=== PATIENT | female | born 1935 | race Caucasian/White ===

== ENCOUNTER 2016-05-20 18:27 | Emergency (ER) | payer MEDICARE ==
[~2016-05-20] VITALS: Ht 149.9 cm; Wt 108.4 kg
[~2016-05-20 18:27] MED LIST: ALEN70TA48 PO; ASPI-483 PO; CHOL200020 PO; HYDR-2164 PO; INSU100V27 SQ; INSU100V28 SQ; MULT-806 PO; OLME20TA15 PO; OMEG-34 PO; OMEP-29 PO; SIMV10TA76 PO
[2016-05-20 18:32] VITALS: Ht 149.9 cm; Wt 108.4 kg
[2016-05-20] MEDS ORDERED: INSU100V13 SQ (18:52)
[2016-05-20] MEDS ORDERED: ACET-2890 PO (18:52)
[2016-05-20 19:07] LABS: BASOPHILS # (AUTO) 0.1 T/MM3 (0-0.2); BASOPHILS % (AUTO) 0.6 % (0-2); EOSINOPHILS # (AUTO) 0.2 T/MM3 (0-0.5); HCT - HEMATOCRIT 42.4 % (36-46); HGB - HEMOGLOBIN 13.8 GM/DL (12-16); IMMATURE GRANULOCYTE # (AUTO) 0.01 T/MM3 (0.00-0.03); IMMATURE GRANULOCYTE % (AUTO) 0.1 % (0.0-0.5); LYMPHOCYTES # (AUTO) 2.7 T/MM3 (1-4.8); LYMPHOCYTES % (AUTO) 33.3 % (23-45); MEAN CORPUSCULAR HGB 30.1 UUG (26-34); MEAN CORPUSCULAR HGB CONC(MCHC 32.5 GM/DL (31-37); MEAN CORPUSCULAR VOLUME 92.4 UM3 (80-100); MEAN PLATELET VOLUME 10.9 UM3 (9.4-12.4); MONOCYTES # (AUTO) 0.5 T/MM3 (0-0.8); MONOCYTES % (AUTO) 5.7 % (0-9.0); NEUTROPHILS #(AUTO)-ABSOLUTE 4.6 T/MM3 (1.8-7.7); NEUTROPHILS % (AUTO) 57.3 % (33-66); RED BLOOD COUNT 4.59 M/MM3 (4.00-5.20)
[2016-05-20 19:11] LABS: ANION GAP 16 MEQ/L (5-15); BUN/CREATININE RATIO 18 RATIO (6-26); CALCIUM 9.4 MG/DL (8.4-10.2); CHLORIDE 111 MEQ/L (98-107); CO2 - CARBON DIOXIDE 23 MEQ/L (22-30); CREATININE 1.1 MG/DL (0.7-1.2); GLOMERULAR FILTRATION RATE 48; GLUCOSE 100 MG/DL (65-110); POTASSIUM 3.8 MEQ/L (3.6-5); SODIUM 150 MEQ/L (134-144)
--- NOTE | 2016-05-20 19:20 | NUR ---
STATUS PT RESTING IN BED. DENIES NEEDS AT THIS TIME. STATES SHE WILL NOTIFY SOMEONE WHEN SHE NEEDS ASSISTANCE TO BEDSIDE COMMODES. STATES RECENT HX OF DIARRHEA AND HAS A SENSE OF URGENCY WHEN SHE FEELS THE NEED TO HAVE A BM. CALL LIGHT WITHIN REACH. BEDSIDE COMMODE IN ROOM.
--- NOTE | 2016-05-20 20:07 | ERPDOC ---
Departure Disposition Decision Date: May 20, 2016 Disposition Decision Time: 20:05 Disposition: 01 DISCHARGED HOME, SELF-CARE Impression Impression Impression: Primary Impression: GI bleed GI bleed type/associated pathology: unspecified gastrointestinal hemorrhage type Qualified Codes: K92.2 - Gastrointestinal hemorrhage, unspecified Severity: Moderate Condition: Stable Seen By: Mid-level only Referrals: VERONICA ROMEO MD (PCP) Patient Instructions: Gastrointestinal Bleeding (ED) Problems/Meds/Labs Reviewed?: Yes Medications reviewed and manag: Yes Additional Instructions: I do want you to continue to monitor your bleeding. Your hemoglobin today is normal. There was small amount of blood in your stool on exam. I want you to schedule a follow up appointment with Dr Romeo on Sunday for reevaluation. If you should have any continued bleeding then return to ER for reevaluation. Follow up care ordered?: Yes Mental Status: Alert, Oriented HPI - Abdominal Pain General Chief Complaint: GI Bleed Stated Complaint: BLOODY STOOLS Time Seen by Provider: 18:40 Source: patient History/Exam Limitations: no limitations HPI - Abdominal Pain Initial Comments She was at home today and had one episode of bloody stool around noon. She felt fine all day today and has not had any nausea/vomiting or fever. Denies any abdominal pain. Has a history of diarrhea secondary to her colectomy with her colon cancer. She has had a scope in the last few years that was negative. She then had another small bloody stool this afternoon and decided to come to ER for evaluation. She has been evaluated for the same at the beginning of April. At that time her hgb was stable and so she was dismissed to home. Did follow up with Dr Romeo at that time and no further evaluation was done. She does have a history of external hemorrhoids. Occurred At: school Onset: Gradual Duration: 6-12 hrs (started around noon) Location: other (None) Radiation: no radiation Associated Symptoms: DENIES: back pain, chest pain, diaphoresis, fatigue, fever /chills, headache, heartburn, nausea/vomiting, rash, shortness of breath, swelling/mass in abdomen, syncope, weakness Hx of Similar Symptoms: No Allergies: Coded Allergies: latex (Verified Allergy, Intermediate, RASH, 05/20/16) VAGINAL IRRITATION WITH CONDOMS Penicillins (Verified Allergy, Mild, rash, 05/20/16) morphine (Verified Allergy, Mild, headache, NAUSEA, 05/20/16) Past History Patient Surgical History Colon cancer with oseas-colectomy Past Medical History Metabolic: diabetes, hypercholesterolemia, hypertension Surgical History General: other Vaccines Hx Influenza Vaccination: No (PT DECLINES) Hx Pneumococcal Vaccination: Yes ([address] ROMEO) Social History Does patient use chewing tobac: No Review of Systems Constitutional Constitutional: DENIES: chills, dizziness, fatigue, fever, weakness Cardiovascular Cardiac: DENIES: chest pain, orthopnea Rhythm/Rate: DENIES: irregular beat, palpitations Vascular: DENIES: pedal edema, unilateral swelling Pulmonary Respiratory: DENIES: cough, dyspnea, sputum, tachypnea GI Upper Abdomen: DENIES: nausea, pain, vomiting Lower Abdomen: DENIES: constipation, diarrhea, pain Integumentary Skin: DENIES: rash Neurological General: DENIES: headache, numbness, tingling, weakness Physical Exam General General Nourishment: well nourished, well developed, appears stated age, no acute distress, adult General Body Habitus: well groomed Vitals and Pain First Documented Vital Signs Date Time Temp Pulse Resp B/P Pulse Ox O2 Delivery O2 Flow Rate FiO2 05/20/16 18:32 97.6 73 20 161/68 96 Room Air Weight: Kilograms: 108.400 Height (feet): 4 Height (inches): 11.00 Triage Pain Scale: RN VS reviewed by Provider: Yes Normal Exams: Neck: Full range of motion, without adenopathy, JVD, bruits or thyromegaly Chest/Resp: Clear all burgos, with good airflow, and symmetry bilaterally CV: Regular rate and rhythm, without murmur or gallop, Pulses 2+ all extremities, capillary refill, <2 seconds all ext., no pedal edema noted Abdomen: Bowel sounds positive, soft, non-tender, non-distended, no hepatosplenomegaly, masses or bruits noted Lymphatic: No lymphadenopathy, or lymphedema noted Integumentary: No rashes, hives, or bruising noted Neurologic: Patient is alert, and oriented Psychiatric: Patient exhibits, appropriate attention, emotion and affect Differential Diagnoses Considering: Dehydration, Food Poisoning, Gastroenteritis, Other (anemia, GI bleed) Progress Results/Orders Orders Procedure Category Date Status Time Cbc W/Auto LAB 05/20/16 Complete Diff-Reflex Manual Bmp - Basic Metabolic LAB 05/20/16 Complete Panel Iv Lock (Ed Only) EDM 05/20/16 Transmitted 18:52 Ua, Dip Wreflex LAB 05/20/16 Logged Microsc & Prototype Model Maker 19:16 Lab Results Laboratory Tests Test 05/20/16 18:55 White Blood Count 8.0T/MM3 Red Blood Count 4.59M/MM3 Hemoglobin 13.8GM/DL Hematocrit 42.4% Mean Corpuscular Volume 92.4UM3 Mean Corpuscular Hemoglobin 30.1UUG Mean Corpuscular Hemoglobin Concent 32.5GM/DL RDW Standard Deviation 47.9FL Platelet Count 219T/MM3 Mean Platelet Volume 10.9UM3 Immature Granulocyte % (Auto) 0.1% Neutrophils (%) (Auto) 57.3% Lymphocytes (%) (Auto) 33.3% Monocytes (%) (Auto) 5.7% Eosinophils (%) (Auto) 3.0% Basophils (%) (Auto) 0.6% Absolute Immature Granulocyte (auto 0.01T/MM3 Absolute Neutrophils (auto) 4.6T/MM3 Absolute Lymphocytes (auto) 2.7T/MM3 Absolute Monocytes (auto) 0.5T/MM3 Absolute Eosinophils (auto) 0.2T/MM3 Absolute Basophils (auto) 0.1T/MM3 Turbidity < 20 Sodium Level 150MEQ/L Potassium Level 3.8MEQ/L Chloride Level 111MEQ/L Carbon Dioxide Level 23MEQ/L Anion Gap 16MEQ/L Blood Urea Nitrogen 20.0MG/DL Creatinine 1.1MG/DL Glomerular Filtration Rate Calc 48 BUN/Creatinine Ratio 18RATIO Glucose Level 100MG/DL Calculated Osmolality 291MOSM/KG Calcium Level 9.4MG/DL Icterus Index < 2 Chemistry Specimen Hemolysis 19 Progress Progress Hgb today is in normal range at 13.8. Rectal exam today is heme positive but she does have multiple external hemorrhoids but no active bleeding noted. No kenny blood noted. BMP today is normal. She does not take a blood thinner at all. Will go ahead and let her go home today. Have her follow up with Dr Romeo this week. DASHA ORDONEZ APRN May 20, 2016 20:07
[2016-05-20 20:26] VITALS: BP 173/58; PULSE 63; RESP 20; TEMP 97.6; O2SAT 95
== END 2016-05-20 20:26 | disposition home or self-care (01) ==
LOC: ED 18:27
DX: K92.2 Gastrointestinal hemorrhage, unspecified (principal)
CPT/HCPCS: 80048; 85025

== ENCOUNTER → 2016-05-22 | Outpatient (CLI) | payer MEDICARE ==
[~2016-05-22] MED LIST changes: +ACET-2890 PO; -CHOL200020 PO; +INSU100V13 SQ; -INSU100V27 SQ
== END ==
LOC: WC.BC 10:41
PROVIDERS: ATTEND Family Medicine
DX: Z12.31 Encounter for screening mammogram for malignant neoplasm of breast (principal); M81.0 Age-related osteoporosis without current pathological fracture; M81.8 Other osteoporosis without current pathological fracture; N91.2 Amenorrhea, unspecified; Z78.0 Asymptomatic menopausal state; Z87.828 Personal history of other (healed) physical injury and trauma; Z90.710 Acquired absence of both cervix and uterus; Z90.722 Acquired absence of ovaries, bilateral
CPT/HCPCS: 77063; 77080; G0202

== ENCOUNTER → 2016-07-04 | Outpatient (CLI) | payer MEDICARE ==
--- NOTE | 2016-07-04 16:28 | DI ---
Indication: ITS.REASON: M25.561 PAIN IN RIGHT KNEE PROCEDURE: KNEE RIGHT 3 VIEWS: Encounter: Initial Comparison: July 14, 2014 Findings: There is no acute fracture, dislocation or malalignment identified. Severe lateral compartment joint space narrowing has worsened from the comparison study. Impression: Worsening severe lateral degenerative change. .
--- NOTE | 2016-07-04 16:29 | DI ---
Indication: ITS.REASON: M54.5 LOW BACK PAIN PROCEDURE: LUMBAR SPINE COMP W/O BEND: Encounter: Initial Comparison: December 15, 2014 Findings: Alignment of the lumbar spine is stable. No acute fracture or subluxation. Mild disk space narrowing at L3-L4 with mild to moderate narrowing at L4-L5. Degenerative facet disease at L4-L5. The overall appearance is not significantly changed from the comparison exam. Impression: No acute fracture. Stable mild degenerative change in the lower lumbar spine. .
--- NOTE | 2016-07-04 16:30 | DI ---
Indication: ITS.REASON: M25.551 PAIN IN RIGHT HIP PROCEDURE: HIP RIGHT 2 VIEW: Encounter: Initial Comparison: December 15, 2014 Findings: There is no acute fracture, dislocation or malalignment identified. Mild medial compartment joint space narrowing is stable. Impression: No acute osseous abnormality. .
--- NOTE | 2016-07-04 16:33 | DI ---
Indication: ITS.REASON: R22.41 LOCALIZED SWELLING RIGHT LOWER LIMB PROCEDURE: US VENOUS DUPLEX, LOWER EXT RT: Encounter: Initial Comparison: None Technique: Color Doppler duplex and grayscale sonographic imaging of the right lower extremity was performed. Findings: There is no evidence for acute deep venous thrombosis in the right thigh. Specifically, serial graded compression was performed from the inguinal ligament to the popliteal bifurcation, on the right thigh, demonstrating appropriate compressibility of the deep venous system. In addition, color and pulsed Doppler demonstrate appropriate spontaneous flow, variation with respiration, and augmentation with calf compression. At the ankle, normal flow is identified in the posterior tibial veins; these vessels are also normal in caliber. Impression: No evidence of acute DVT in the right lower limb. .
[2016-07-04 16:46] LABS: BASOPHILS # (AUTO) 0.1 T/MM3 (0-0.2); BASOPHILS % (AUTO) 0.7 % (0-2); EOSINOPHILS # (AUTO) 0.2 T/MM3 (0-0.5); EOSINOPHILS % (AUTO) 2.7 % (0-4); HCT - HEMATOCRIT 42.3 % (36-46); IMMATURE GRANULOCYTE # (AUTO) 0.01 T/MM3 (0.00-0.03); IMMATURE GRANULOCYTE % (AUTO) 0.1 % (0.0-0.5); LYMPHOCYTES % (AUTO) 29.5 % (23-45); MEAN CORPUSCULAR HGB 30.3 UUG (26-34); MEAN CORPUSCULAR HGB CONC(MCHC 33.1 GM/DL (31-37); MEAN CORPUSCULAR VOLUME 91.6 UM3 (80-100); MEAN PLATELET VOLUME 10.6 UM3 (9.4-12.4); MONOCYTES # (AUTO) 0.5 T/MM3 (0-0.8); MONOCYTES % (AUTO) 6.8 % (0-9.0); NEUTROPHILS #(AUTO)-ABSOLUTE 4.1 T/MM3 (1.8-7.7); NEUTROPHILS % (AUTO) 60.2 % (33-66); RED BLOOD COUNT 4.62 M/MM3 (4.00-5.20); WBC - WHITE BLOOD COUNT 6.8 T/MM3 (4.5-11.0)
== END ==
LOC: IMA 15:22
PROVIDERS: ATTEND Family Medicine
DX: M25.551 Pain in right hip (principal); M25.561 Pain in right knee; R22.41 Localized swelling, mass and lump, right lower limb; M54.5 Low back pain; M17.11 Unilateral primary osteoarthritis, right knee; M47.896 Other spondylosis, lumbar region
CPT/HCPCS: 36415; 85025; 85652

== ENCOUNTER 2017-03-20 22:00 | Inpatient (IN) ==
[2017-03-20] MEDS ORDERED: SALINE FLUSH 10ml SYRINGE IVF PRN (22:08)
[2017-03-20] MEDS ORDERED: FentaNYL 100 MCG/2 ML INJECTION IVP ONE ×2 (22:16→23:54)
--- NOTE | 2017-03-20 22:16 | Emergency Department Report ---
Fall HPI - General Stated Complaint: fall Time Seen by Provider: 03/20/17 22:03 Source: patient, EMS Mode of arrival: EMS Limitations: no limitations - History of Present Illness HPI Narrative: Patient was in bed, thinking that she might of forgot to lock her door, she got up to go locked the door when she stumbled and fell onto her right side. She was able to get to a phone called her son and then called EMS. EMS picked the patient up, but due to severe pain in the right shoulder. Position of comfort on her left side. No IV was able to be established, however the patient was given 100 g fentanyl intranasally with temporary relief of the pain. Currently patient states that she does not need anything more through the pain at this time. Patient is extremely sensitive to morphine, cannot take it, but has used Demerol in the past after surgery. - Related Data Home Medications Medication Instructions Recorded Confirmed Lantus (insulin glargine) 100 58 unit SQ HS ml 01/09/17 03/21/17 unit/mL SQ Novolog (insulin aspart) 100 26 unit SQ TID 89 Days #69.42 ml 01/09/17 03/21/17 unit/mL Prilosec (Omeprazole) 20 mg 20 mg PO DAILY cap 01/09/17 03/21/17 capsule,delayed release Zocor (simvastatin) 10 mg tablet 10 mg PO QAM 01/09/17 03/21/17 multivitamin tablet 1 tab PO QAM 01/09/17 03/21/17 omega-3 fatty acids-fish oil 1 cap PO DAILY 01/09/17 03/21/17 Aspirin [[place] Aspirin] 81 mg PO DAILY 02/02/17 03/21/17 Hydrocodone/APAP 5/325 [[place] 1 tab PO Q6H PRN 02/02/17 03/21/17 5/325] Allergies Allergy/AdvReac Type Severity Reaction Status Date / Time latex Allergy Intermediate RASH Verified 03/20/17 22:43 morphine Allergy Mild headache, Verified 03/20/17 22:43 NAUSEA Penicillins Allergy Mild rash Verified 03/20/17 22:43 adhesive tape Allergy Verified 03/20/17 22:43 Review of Systems All systems: reviewed and negative except as stated PFSH Patient Stated Medical History Dementia Yes Diabetes Mellitus Type 2 Yes Hx Incontinence Yes Osteoarthritis Yes MRSA Yes Clinic Medical History (Last Reviewed 01/09/17 @ 14:05 by Joseline Morgan MD) Rheumatic fever (Resolved Medical) Gout (Chronic Medical) Osteoporosis (Chronic Medical ~2011) Osteoarthritis (Chronic Medical) GI bleed (Chronic Medical) Colon polyps (Chronic Medical) GERD (gastroesophageal reflux disease) (Chronic Medical) Hepatitis (Chronic Medical) Cataract (Chronic Medical) Colon cancer (Resolved Medical ~2009) Atrial fibrillation (Chronic Medical) Chest pain (Chronic Medical) Diabetes mellitus type 2, controlled (Chronic Medical ~2000) Diabetic nephropathy associated with type 2 diabetes mellitus (Chronic Medical ~ 03/2015) Hyperlipidemia LDL goal <100 (Chronic Medical) Hypertension (Chronic Medical) Morbid obesity with BMI of 45.0-49.9, adult (Chronic Medical) Surgical History: -Hernia Repairs. -Tubal Ligation - 1965. -Colectomy - 2009. -Partial Hysterectomy - age 40. -Bilat Cataract Removal - 2012. - Colonoscopies Family History: Family History (Last Reviewed 01/09/17 @ 14:05 by Joseline Morgan MD) Mother Lung cancer Daughter Thyroid cancer - Social History Smoking status: Never smoker Physical Exam - Limitations Limitations: no limitations - General General appearance: alert, in distress (secondary to pain during movement) - Normal Exams: Head:: Normocephalic without trauma Eyes:: Pupils are PERRLA w/ EOMI, No scleral icterus, irritation, or foreign bodies noted ENMT:: No facial trauma, nasal exudates, pharyngeal erythema, or exudates are noted Neck:: Full range of motion, without adenopathy, JVD, bruits or thyromegaly Chest/Respirations:: Clear all burgos, with good airflow, and symmetry bilaterally Cardiovascular:: Regular rate and rhythm, without murmur or gallop, Pulses 2+ all extremities, capillary refill, <2 seconds all extremities Abdomen:: Bowel sounds positive, soft, non-tender, non-distended, no hepatosplenomegaly, masses or bruits noted Lymphatic:: No lymphadenopathy, or lymphedema noted Integumentary:: No rashes, hives, or bruising noted, hair and nails, without abnormality Neurological:: Patient is alert, and oriented, cranial nerves, motor/sensory/ cerebellar, exams w/o gross deficits, to observation Psychiatric:: Patient exhibits, appropriate attention, emotion and affect - Extremities Exam Extremities exam: Present: other (patient has significant pain with tenderness over the lateral clavicle, proximal humerus, and the shoulder girdle in general. No obvious deformity. Limited range of motion secondary to pain.) Course Vital Signs Temperature 97.5 F 03/20/17 22:00 Pulse Rate 60 03/20/17 22:00 Respiratory Rate 20 03/20/17 22:00 Blood Pressure 140/90 H 03/20/17 22:00 Pulse Oximetry 95 03/20/17 22:00 Temperature 97.5 F 03/20/17 22:00 Pulse Rate 55 L 03/21/17 03:30 Respiratory Rate 18 03/21/17 03:30 Blood Pressure 171/74 H 03/21/17 03:30 Pulse Oximetry 95 03/21/17 03:30 Fall - [facility] Narrative Medical decision making narrative: Patient given no further medication per her request initially in the ER Shoulder x-rays - anterior dislocation Clavicle x-rays -negative After patient was given Demerol 100 mg IM and additional fentanyl total 150 g intranasally, reduction was attempted with several maneuvers that all failed. After extensive efforts, an IV was found was able to be placed. Patient was given an additional dose of 100 g fentanyl to help pain, pain was significantly reduced, to the point that she required supplemental oxygen, but even during this the patient was unable to relax to the point of adequate reduction. Case is discussed with orthopedic PAIndra, we will plan on taking the patient to the OR for anesthesia procedural sedation and orthopedic reduction of the shoulder. After discussion with Dr. Solomon, we will get CT of the shoulder to verify anterior versus posterior dislocation Shoulder CT - - Lab Data Result diagrams: 03/21/17 00:18 03/21/17 00:18 Lab Results 03/21/17 03/21/17 Range/Units : 00:18 WBC 11.2 H (4.5-11.0) T/MM3 RBC 4.58 (4.00-5.20) M/MM3 Hgb 13.9 (12-16) GM/DL Hct 42.6 (36-46) % MCV 93.0 (80-100) UM3 MCH 30.3 (26-34) UUG MCHC 32.6 (31-37) GM/DL RDW Std Deviation 51.0 H (36.9-50.2) FL Plt Count 176 (130-400) T/MM3 MPV 11.2 (9.4-12.4) UM3 Immature Gran % (Auto) Not performed Neut % (Auto) Not performed Lymph % (Auto) Not performed [place] % (Auto) Not performed Eos % (Auto) Not performed Baso % (Auto) Not performed Neut # (Auto) Not performed Lymph # (Auto) Not performed [place] # (Auto) Not performed Eos # (Auto) Not performed Baso # (Auto) Not performed Abs Immat Gran (auto) Not performed Neutrophils % (Manual) 86.0 H (33-66) % Band Neutrophils % 1.0 (0-6) % Lymphocytes % (Manual) 9.0 L (23-45) % Monocytes % (Manual) 3.0 (0-9.0) % Basophils % (Manual) 1.0 (0-2) % Neutrophils # (Manual) 9.6 H (1.8-7.7) T/MM3 Band Neutrophils # 0.1 T/MM3 Lymphocytes # (Manual) 1.0 (1-4.8) T/MM3 Monocytes # (Manual) 0.3 (0-0.8) T/MM3 Basophils # (Manual) 0.1 (0-0.2) T/MM3 RBC Morph Comment Normal Turbidity < 20 (0-20) Sodium 146 H (134-144) MEQ/L Potassium 4.3 (3.6-5) MEQ/L Chloride 110 H (98-107) MEQ/L Carbon Dioxide 26 (22-30) MEQ/L Anion Gap 10 (5-15) MEQ/L BUN 28.0 H (7-17) MG/DL Creatinine 0.9 (0.7-1.2) MG/DL GFR Calculation 60 BUN/Creatinine Ratio 31 H (6-26) RATIO Glucose 208 H (65-110) MG/DL Calculated Osmolality 293 H (261-280) MOSM/KG Calcium 9.3 (8.4-10.2) MG/DL Total Bilirubin 0.20 (0.20-1.30) MG/DL Conjugated Bilirubin 0.00 (0.00-0.30) MG/DL Unconjugated Bilirubin 0.00 (0.00-1.1) MG/DL Icterus Index < 2 (0-7) AST 21 (14-36) U/L ALT 33 (9-52) U/L Alkaline Phosphatase 127 H (38-126) U/L Total Protein 7.1 (6.3-8.2) G/DL Albumin 4.0 (3.5-5.0) G/DL Globulin 3.1 (2.4-3.6) G/DL Albumin/Globulin Ratio 1.3 (1.1-2.2) RATIO Specimen Hemolysis < 15 (0-25) Disposition Clinical Impression: Anterior shoulder dislocation Qualifiers: Encounter type: initial encounter Laterality: right Qualified Code(s): S43.014A - Anterior dislocation of right humerus, initial encounter Hill-Sachs fracture of right humerus Qualifiers: Encounter type: initial encounter Fracture type: closed Qualified Code(s): S42.291A - Other displaced fracture of upper end of right humerus, initial encounter for closed fracture Disposition: To [facility] Condition: Stable - Seen By: physician
[2017-03-20] MEDS ORDERED: MEPERIDINE 100 MG/ML INJECTION IM ONE (22:28)
[2017-03-20] MEDS ORDERED: FentaNYL 100 MCG/2 ML INJECTION NAS ONE ×2 (22:28→22:52)
[2017-03-21] MEDS ORDERED: FentaNYL 100 MCG/2 ML INJECTION IVP ONE (01:38)
[2017-03-21] MEDS ORDERED: MIDAZOLAM 2mg/2ml INJECTION ONE (03:37)
[2017-03-21] MEDS ORDERED: FentaNYL 100 MCG/2 ML INJECTION ONE (03:37)
[2017-03-21] MEDS ORDERED: PROPOFOL 20 ML ONE (03:38)
[2017-03-21] MEDS ORDERED: NS 1,000 ML IV SCH (04:45)
--- NOTE | 2017-03-21 04:58 | Anesthesia Preoperative Report ---
Anesthesia Preoperative Record - Date and Time Date: 03/21/17 Preoperative Diagnosis: Shoulder dislocation Proposed Procedure: right shoulder closed reduction NPO Since Date: 03/20/17 NPO Since Time: 17:30 Allergies/Adverse Reactions: Allergies Allergy/AdvReac Type Severity Reaction Status Date / Time latex Allergy Intermediate RASH Verified 03/20/17 22:43 morphine Allergy Mild headache, Verified 03/20/17 22:43 NAUSEA Penicillins Allergy Mild rash Verified 03/20/17 22:43 adhesive tape Allergy Verified 03/20/17 22:43 - Vital Signs Vital Signs: Temperature 98.1 F 03/21/17 04:45 Pulse Rate 59 L 03/21/17 04:45 Respiratory Rate 18 03/21/17 04:45 Blood Pressure 163/67 H 03/21/17 04:45 Pulse Oximetry 96 03/21/17 04:45 Height and Weight: Height 4 ft 11 in Weight 109.9 kg - Medications Inpatient Medications: Current Medications Sodium Chloride (Normal Saline) 1,000 mls @ 125 mls/hr IV .Q8H ALHAJI Last Admin: 03/21/17 03:40 Dose: 125 mls/hr Sodium Chloride (Iv Flush) 10 - 80 ml IVF PRN PRN PRN Reason: [place] Home Medications: Home Medications Medication Instructions Recorded Confirmed Type Lantus (insulin glargine) 100 58 unit SQ HS ml 01/09/17 03/21/17 History unit/mL SQ Novolog (insulin aspart) 100 26 unit SQ TID 89 Days #69.42 ml 01/09/17 03/21/17 History unit/mL Prilosec (Omeprazole) 20 mg 20 mg PO DAILY cap 01/09/17 03/21/17 History capsule,delayed release Zocor (simvastatin) 10 mg tablet 10 mg PO QAM 01/09/17 03/21/17 History multivitamin tablet 1 tab PO QAM 01/09/17 03/21/17 History omega-3 fatty acids-fish oil 1 cap PO DAILY 01/09/17 03/21/17 History Aspirin [[place] Aspirin] 81 mg PO DAILY 02/02/17 03/21/17 History Hydrocodone/APAP 5/325 [[place] 1 tab PO Q6H PRN 02/02/17 03/21/17 History 5/325] Is Patient on Beta Emery?: No - Medical History Respiratory: Reports: Sleep Apnea (likely) DENIES: Asthma Cardiovascular: Reports: Hypertension DENIES: Angina Gastrointestional: Reports: Gastroesophageal Reflux Disease (controlled with meds) DENIES: Nausea or Vomiting Present Neuro/Musculoskeletal: Reports: HX.MS.OSAR Renal/Endocrine: Reports: Diabetes Mellitus Type 2 Other History: DENIES: Anesthesia Reactions - Surgical History GI Surgery/Treatments: Reports: Hernia Repair, Other (colon surgery for cancer) Reproductive Surgery/Treatment: Reports: Hysteroscopy Anesthesia Reactions: None Hx Family Anesthesia Reaction: No History of Motion Sickness: No - Social History Smoking Status: Never smoker Substance Use Type: does not use Alcohol Intake: never - Pertinent Findings Laboratory: CBC and BMP 03/21/17 00:18 03/21/17 00:18 BMP 03/21/17 00:18 Sodium 146 H Potassium 4.3 Chloride 110 H Carbon Dioxide 26 BUN 28.0 H Creatinine 0.9 Glucose 208 H Calcium 9.3 Liver Function 03/21/17 Range/Units 00:18 Total Bilirubin 0.20 (0.20-1.30) MG/DL AST 21 (14-36) U/L ALT 33 (9-52) U/L Alkaline Phosphatase 127 H (38-126) U/L Albumin 4.0 (3.5-5.0) G/DL EKG: Sinus Rhythm - Physical Exam Respiratory Exam: Present: bilateral breath sounds equal (diminished due to weight/size) - Airway Assessment Mallampati Score: IV TMD: 3 Fingerbreadths Neck Extension: poor Teeth: upper dentures (out) Overall Assessment: may be difficult mask vent, may be difficult intubation - ASA ASA Score: 3, E - Plan Anesthesia: General TIVA, General Inhalation Gases - Discussion Discussion: Discussed risks/options/alternatives of anesthesia and questions answered. Patient consents. Nursing pain assessment noted. Present for Discussion: family member (son) Attestation Statement: Prior to the delivery of any anesthetic medication, I examined the patient, developed the plan, obtained the patient's consent and discussed the risk and benefits of the procedure with the patient/guardian. - Additional Information Seen by Anesthesia: Yes
--- NOTE | 2017-03-21 05:07 | Anesthesia Postoperative Note ---
- Date and Time Date: 03/21/17 Time: 05:05 - Status Patient Participated in Evaluation: Patient Participated in Person Vital Signs: Temperature 98.1 F 03/21/17 04:45 Pulse Rate 59 L 03/21/17 04:45 Respiratory Rate 18 03/21/17 04:45 Blood Pressure 163/67 H 03/21/17 04:45 Pulse Oximetry 96 03/21/17 04:45 Respiratory Function: Airway Patent Cardiovascular Function: Regular Pulse EKG: Sinus Rhythm Mental Status: Alert and Oriented Pain Intensity: 2 Hydration: IV Infusing Complications During Recover: None Apparent Post Anesthesia Care Notes: Pt doing well. Sats >95% on 2L NC. Denies SOB, does not appear labored. States pain is tolerable. Will remain on continuous pulse oximetry on floor, and followed by hospitalist. - Follow-Up Instructions Instructions: Per Surgeon
[2017-03-21] MEDS ORDERED: DEXTROSE 50% SYRINGE 50ml (1 AMP) IVP PRN (05:24)
[2017-03-21] MEDS ORDERED: INSULIN ASPART 100unit/ml INJECTION SQ PRN ×2 (05:24→14:14)
[2017-03-21] MEDS ORDERED: ALBUTEROL 2.5mg/3ml (0.083%) NEB AEROSOL PRN (05:25)
--- NOTE | 2017-03-21 05:31 | Consult Note ---
Consult Information - Data of Consult Consult date: 03/21/17 Requesting Physician: Florin Solomon MD Primary Care Provider: Dominik Romeo MD - Consult Narrative Reason for consult: hypoxia History of present illness: Please note that the patient was seen via telemedicine with nursing assistance on 03/21/2017 Ms. Miles is a pleasant 81yo independent woman with h/o DM2 on insulin, GERD, dyslpidemia, Class 3 obesity BMI 48.9, but no respiratoy problems and not on O2 normally. She fell last PM around 2100 when getting up to check if door locked and slipped with socks on and had no syncope. R shoulder pain subsequently and dislocation evident on ED eval/imaging with Dr. Solomon OR reduction completed. After the event she was very hypoxic and requiring 6-8L NC O2. No witness vomiting. She since in the last hour is more alert and only requiring 2L NC. No cough. She denies dyspnea or recent fever/illness. Denies nausea and wants OJ which we will not do currently. Await CBG result Past Medical History Patient Stated Medical History Dementia Yes Angina No Hypertension Yes Asthma No Sleep Apnea Yes: likely Diabetes Mellitus Type 2 Yes Gastroesophageal Reflux Yes: controlled with meds Disease Hx Incontinence Yes Osteoarthritis Yes MRSA Yes Anesthesia Reactions No Clinic Medical History (Last Reviewed 01/09/17 @ 14:05 by Joseline Morgan MD) Rheumatic fever (Resolved Medical) Gout (Chronic Medical) Osteoporosis (Chronic Medical ~2011) Osteoarthritis (Chronic Medical) GI bleed (Chronic Medical) Colon polyps (Chronic Medical) GERD (gastroesophageal reflux disease) (Chronic Medical) Hepatitis (Chronic Medical) Cataract (Chronic Medical) Colon cancer (Resolved Medical ~2009) Atrial fibrillation (Chronic Medical) Chest pain (Chronic Medical) Diabetes mellitus type 2, controlled (Chronic Medical ~2000) Diabetic nephropathy associated with type 2 diabetes mellitus (Chronic Medical ~ 03/2015) Hyperlipidemia LDL goal <100 (Chronic Medical) Hypertension (Chronic Medical) Morbid obesity with BMI of 45.0-49.9, adult (Chronic Medical) Surgical History: -Hernia Repairs. -Tubal Ligation - 1965. -Colectomy - 2009. -Partial Hysterectomy - age 40. -Bilat Cataract Removal - 2012. - Colonoscopies Family History: Family History (Last Reviewed 01/09/17 @ 14:05 by Joseline Morgan MD) Mother Lung cancer Daughter Thyroid cancer Family History Updates: no early CAD, but DM2 - Social History Smoking status: Never smoker Substance use type: does not use Alcohol intake frequency: does not drink Housing: house Household members: none Current occupational status: retired Medications Home Medications Medication Instructions Recorded Confirmed Type Lantus (insulin glargine) 100 58 unit SQ HS ml 01/09/17 03/21/17 History unit/mL SQ Novolog (insulin aspart) 100 26 unit SQ TID 89 Days #69.42 ml 01/09/17 03/21/17 History unit/mL Prilosec (Omeprazole) 20 mg 20 mg PO DAILY cap 01/09/17 03/21/17 History capsule,delayed release Zocor (simvastatin) 10 mg tablet 10 mg PO QAM 01/09/17 03/21/17 History multivitamin tablet 1 tab PO QAM 01/09/17 03/21/17 History omega-3 fatty acids-fish oil 1 cap PO DAILY 01/09/17 03/21/17 History Aspirin [[place] Aspirin] 81 mg PO DAILY 02/02/17 03/21/17 History Hydrocodone/APAP 5/325 [[place] 1 tab PO Q6H PRN 02/02/17 03/21/17 History 5/325] Allergies Allergy/AdvReac Type Severity Reaction Status Date / Time latex Allergy Intermediate RASH Verified 03/20/17 22:43 morphine Allergy Mild headache, Verified 03/20/17 22:43 NAUSEA Penicillins Allergy Mild rash Verified 03/20/17 22:43 adhesive tape Allergy Verified 03/20/17 22:43 Exam Vital Signs: Temperature 98.1 F 03/21/17 04:45 Pulse Rate 59 L 03/21/17 04:45 Respiratory Rate 18 03/21/17 04:45 Blood Pressure 163/67 H 03/21/17 04:45 Pulse Oximetry 96 03/21/17 04:45 Telemetry Rhythm: Sinus Rhythm Height/Weight/BMI: Height 1.5 m Weight 109.9 kg - Constitutional Present: no acute distress - Routine HEENT Exam Head: Present: normocephalic Eye: Present: EOMI - Routine Respiratory Exam Present: CTA bilaterally. Absent: accessory muscle use Comments: just upper airway sounds likely from obesity - Routine Cardiovascular Exam Present: RRR, S1, S2, no murmur - Routine Abdominal Exam Present: soft, normoactive bowel sounds - Routine Extremities Exam Absent: cyanosis - Routine Neurological Exam Present: alert, oriented X3, CN II-XII intact - Routine Psychiatric Exam Present: normal affect Results - Labs CBC & Chem 7: 03/21/17 00:18 03/21/17 00:18 Assessment and Plan (1) Hypoxia Current visit: Yes Status: Acute (2) GERD (gastroesophageal reflux disease) Current visit: Yes Status: Acute (3) Diabetes mellitus type 2, controlled Current visit: No Status: Chronic (4) Hyperlipidemia LDL goal <100 Current visit: No Status: Chronic (5) Hypertension Current visit: No Status: Chronic (6) Morbid obesity with BMI of 45.0-49.9, adult Current visit: No Status: Chronic Assessment and Plan: 1. Hypoxia--monitor with NC O2 wean and likely more anesthesia/obesity. Duoneb once, prn albuterol and f/u CXR result. No abx for now. NPO and ST eval. 2. R shoulder dislocation now reduced and in sling. Pain meds per primary team. PT/SW. 3. DM2, on lantus 58u daily last taken at 2030 last night. CBGs, SSI, ultimately diabetic diet pendint ST eval. 4. Essential HTN 5. Dyslipidemia 6. GERD on PPI. 7. Leukocytosis with no fever likely stress induced. Repeat with labs tomorrow AM and monitor temp. 8. Class 3 obeisty BMI 48.9 Resuscitation Status: Full Code - Physician Narrative Physician: Sydney Webber MD Narrative: Date: 03/21/17 Time: 1330 Dr. Salgado's note reviewed. Mrs. Miles interviewed and examined. Her son and daughter are at bedside and provide majority of history. CC: Consultation requested for evaluation of hypoxia HPI: Mrs. Miles is an 81-year-old female with multiple chronic medical conditions as outlined above by Dr. Salgado. It is believed she slipped and fell when she got up last night to check to see if the door was locked. She was able to call her son just after 9 pm and he in turn contacted EMS. The patient received 100 g of fentanyl intranasally and route to the emergency room; on arrival in the ER oxygen saturation was 95% on room air. After x-rays the patient received 100 mg of Demerol IM and an additional 150 g of intranasal fentanyl prior to shoulder reduction attempt. An additional 100 g of fentanyl was then given IV at which time 4 L supplemental oxygen became necessary. Eventually the patient was taken to the operating room overnight for right shoulder reduction under anesthesia. There is some question of whether she may have aspirated intraoperatively. She required 8 L of supplemental oxygen briefly around 4 AM after which she's been on 2 L oxygen with stable oxygen levels. Patient does not use oxygen at home and family members indicate that she is typically breathless when she speaks. The patient denies feeling short of breath at time of reassessment this morning and denies having cough or sputum production. She has never been evaluated for sleep apnea that family is aware of and does not use CPAP. The patient is unsure if she hit her head or blacked out but she did strike her knees and jammed fingers on the right hand. Patient is not able to provide any coherent historical information. PH/SH/FH: agree with that recorded above. Patient sees Dr. Estes for management of her diabetes. Records indicate father had a myocardial infarction and one sister had a stroke in addition to family history previously described. Additionally patient has a remote history of tobacco use. The patient's son Anurag acts as her alternate decision-maker and the patient is a full code. ROS: 10 point review cannot be obtained from the patient due to baseline dementia and her inability to focus on current events. She is unsure if she lost consciousness with the fall yesterday; she describes dry throat, shoulder pain, and constipation. Family members reports she snores excessively and naps a lot during the day. Patient denies morning headaches except one that occurred several years ago. EXAM: General-morbidly obese female with short thick neck, very talkative but no content; 97.9, 78, 20, a 43/80, 95% on 1 L HEENT-PERRL, EOMI without nystagmus, conjunctiva clear, sclera anicteric, conjugate gaze, facial structures symmetric, oropharynx clear with dry membranes ; shoulder strap precludes assessment of neck; no soft tissue swelling or areas of tenderness over her scalp Lungs-patient seems breathless speaking, diminished breath sounds throughout but no wheezing/rhonchi/crackles present on anterior auscultation; limited auscultation of the right lower lung field due to arm positioning Cardiac-regular rhythm, F1-[id number] heart tones Abd-obese, soft, nontender, bowel sounds present Ext-without edema distal lower extremities Skin-small bruise proximal left forearm, 1-1/2 cm abrasion over the right patella, Neuro-cranial nerves 3-12 intact, sensation intact 4 extremities, wiggles fingers on the right hand, left business services associate strong, dorsiflexion/plantarflexion intact bilateral lower extremities Psych-pleasantly confused DATA: Chest x-ray obtained last night reviewed by myself-poor quality film, CM , no obvious infiltrate/heart failure. [place] of right lung and right mid lungs viewed in lung windows on CT of shoulder demonstrate no abnormalities. White count 11.2, hemoglobin 13.9, sodium 146, creatinine 0.9, GFR 60, glucose on admission 208, liver enzymes unremarkable. A/P: Hypoxia, new Right shoulder dislocation, s/p reduction under anesthesia Diabetes mellitus with neuropathy, long-term insulin use Dementia Hypertension Probable sleep apnea DJD/gout/osteoporosis Repeat chest x-ray to determine if any evidence of infiltrate given questionable history of aspiration during shoulder reductions overnight. Patient is not febrile and oxygenation has improved but not normalized after narcotics of largely cleared from her system. Suspect respiratory depression with narcotics needed for pain control with procedure primary cause of hypoxia. However patient may well have underlying sleep apnea and be at risk for recurrent hypoxia. She does not have chronic hypercarbia by lab work on admission or when labs were last evaluated in the office by outpatient record review. Nocturnal oximetry can be obtained during hospitalization. Monitor blood sugars per routine, corrective insulin added. Need to clarify home medications-records indication she has been on an ARB and diuretic which are not on her home medication list. Discussed with nursing and case management. Hospital Course Summary Disclaimer: The visit summary below is not to be considered part of the above Progress Note.
[2017-03-21] MEDS: LR 1,000 ML IV SCH ×2 (05:46→17:58)
--- NOTE | 2017-03-21 07:38 | CT Scan Report ---
Indication: persistent right shoulder dislocation PROCEDURE: CT shoulder RT wo con: Encounter: Initial Comparison: None Technique: Axial CT images were performed through the right shoulder without intravenous contrast. Coronal and sagittal two-dimensional reformats. Automated Exposure Control and Iterative Reconstruction dose reducing techniques were utilized. Findings: There is an anteroinferior dislocation of the right humeral head with a deep Hill-Sachs impaction fracture present. This fracture interlocking with the glenoid bone is probably preventing successful reduction of the dislocation. No additional acute fracture or dislocation noted. Degenerative change in the spine. Impression: Right humeral dislocation with a Hill-Sachs impaction fracture. There is a preliminary report by [facility]. .
--- NOTE | 2017-03-21 07:38 | XRay Report ---
Indication: fall right clavicle pain PROCEDURE: XR clavicle RT: Encounter: Initial Comparison: None Findings/ Impression: No clavicular fractures seen. .
--- NOTE | 2017-03-21 07:39 | XRay Report ---
Indication: fall, right proximal humerus pain PROCEDURE: XR humerus RT: Encounter: Initial Comparison: None Findings: Anteroinferior dislocation of the humeral head with a Hill-Sachs impaction fracture. Impression: Findings as above. .
--- NOTE | 2017-03-21 07:40 | XRay Report ---
Indication: post reduction PROCEDURE: XR shoulder RT 1V: Encounter: Initial Comparison: None Findings: Anteroinferior dislocation of the humeral head with a Hill-Sachs impaction fracture. Degenerative change in the acromioclavicular joint. Impression: Findings as above. .
--- NOTE | 2017-03-21 07:41 | XRay Report ---
Indication: post reduction PROCEDURE: XR shoulder RT 1V: Encounter: Initial Comparison: Radiographs from the prior day Findings: There is persistent anteroinferior dislocation of the humeral head with a Hill-Sachs impaction fracture seen. Degenerative change in the acromioclavicular joint. Evidence of old trauma at the coracoclavicular interval. Impression: Persistent humeral head dislocation. .
--- NOTE | 2017-03-21 08:03 | XRay Report ---
Indication: possible aspiration PROCEDURE: XR chest 1V: Encounter: Initial Comparison: January 30, 2013 Findings: Examination is limited due to underpenetration. Very limited visualization of the left base. No obvious focal pneumonia, gross pleural effusion or pneumothorax elsewhere. Cardiac silhouette axillary remains moderately enlarged. Mediastinal contours are stable. Impression: Limited exam without obvious focal pneumonia. Recommend PA and lateral radiographs when possible for further evaluation. There is a preliminary report by [facility]. .
--- NOTE | 2017-03-21 08:24 | Orthopedic History & Physical ---
Orthopedic HPI - HPI Comments Alina is an 81 yo lady who lives alone but has a son that helps her with decision making and living needs. She got up last evening around 2100 to check a door when she slipped and fell. She injured her right shoulder and had severe pain. She called her son and then EMS. Pt was brought to [facility] where xrays showed a dislocation of the right shoulder. CT scan showed the same with a Hill-Sachs deformity of the posterior humeral head. Attempts to reduce this in ER failed and Dr Solomon was contacted for surgical reduction. Pt denies other injury. Denies numbness or tingling of her arm or fingers. [facility] Patient Stated Medical History Dementia Yes Angina No Hypertension Yes Asthma No Sleep Apnea Yes: likely Diabetes Mellitus Type 2 Yes Gastroesophageal Reflux Yes: controlled with meds Disease Hx Incontinence Yes Osteoarthritis Yes MRSA Yes Anesthesia Reactions No Clinic Medical History (Last Reviewed 01/09/17 @ 14:05 by Joseline Morgan MD) Rheumatic fever (Resolved Medical) Gout (Chronic Medical) Osteoporosis (Chronic Medical ~2011) Osteoarthritis (Chronic Medical) GI bleed (Chronic Medical) Colon polyps (Chronic Medical) GERD (gastroesophageal reflux disease) (Chronic Medical) Hepatitis (Chronic Medical) Cataract (Chronic Medical) Colon cancer (Resolved Medical ~2009) Atrial fibrillation (Chronic Medical) Chest pain (Chronic Medical) Diabetes mellitus type 2, controlled (Chronic Medical ~2000) Diabetic nephropathy associated with type 2 diabetes mellitus (Chronic Medical ~ 03/2015) Hyperlipidemia LDL goal <100 (Chronic Medical) Hypertension (Chronic Medical) Morbid obesity with BMI of 45.0-49.9, adult (Chronic Medical) Surgical History: -Hernia Repairs. -Tubal Ligation - 1965. -Colectomy - 2009. -Partial Hysterectomy - age 40. -Bilat Cataract Removal - 2012. - Colonoscopies Family History: Family History (Last Reviewed 01/09/17 @ 14:05 by Joseline Morgan MD) Mother Lung cancer Daughter Thyroid cancer - Social History Smoking status: Never smoker Review of Systems - Constitutional Constitutional: Absent: fever(s), headache(s), night sweats, weakness - EENT Ears, nose, mouth, throat: Absent: headaches, lightheadedness - Cardiovascular Cardiovascular: Absent: chest pain, syncope - Respiratory Respiratory: Present: dyspnea (chronic.). Absent: cough - Gastrointestinal Gastrointestinal: Absent: abdominal pain, nausea, vomiting - Genitourinary Genitourinary General: Absent: chills, fever(s) - Musculoskeletal Musculoskeletal: Present: as per HPI - Integumentary/Breasts Integumentary: Absent: lesions, rash - Neurological Neurological: Absent: numbness, paresthesias, tingling - Psychiatric Psychiatric: Present: other (Reports her son helps with decision making.) Medications Home Medications Medication Instructions Recorded Confirmed Type Lantus (insulin glargine) 100 58 unit SQ HS ml 01/09/17 03/21/17 History unit/mL SQ Novolog (insulin aspart) 100 26 unit SQ TID 89 Days #69.42 ml 01/09/17 03/21/17 History unit/mL Prilosec (Omeprazole) 20 mg 20 mg PO DAILY cap 01/09/17 03/21/17 History capsule,delayed release Zocor (simvastatin) 10 mg tablet 10 mg PO QAM 01/09/17 03/21/17 History multivitamin tablet 1 tab PO QAM 01/09/17 03/21/17 History omega-3 fatty acids-fish oil 1 cap PO DAILY 01/09/17 03/21/17 History Aspirin [[place] Aspirin] 81 mg PO DAILY 02/02/17 03/21/17 History Hydrocodone/APAP 5/325 [[place] 1 tab PO Q6H PRN 02/02/17 03/21/17 History 5/325] Allergies Allergy/AdvReac Type Severity Reaction Status Date / Time latex Allergy Intermediate RASH Verified 03/20/17 22:43 morphine Allergy Mild headache, Verified 03/20/17 22:43 NAUSEA Penicillins Allergy Mild rash Verified 03/20/17 22:43 adhesive tape Allergy Verified 03/20/17 22:43 Orthopedic Exam Vital signs: Temperature 97.9 F 03/21/17 04:55 Pulse Rate 55 L 03/21/17 06:40 Respiratory Rate 16 03/21/17 06:40 Blood Pressure 172/71 H 03/21/17 06:40 Pulse Oximetry 92 03/21/17 06:40 - Constitutional General Appearance: Present: alert, obese - Respiratory Exam Present: non-labored - Cardiovascular Exam Present: other (Radial pulse intact.) Capillary Refill: < 2-3 Seconds - Abdominal Exam Present: soft - Extremities Exam Present: pulses intact, normal capillary refill - Integumentary Exam Present: pink, warm, dry - Neurological Exam Present: intact to light touch, no deficits - Psychiatric Exam Present: alert - Labs Result Diagrams: 03/21/17 00:18 03/21/17 00:18 Abnormal lab results 03/21/17 03/21/17 Range/Units 00:18 00:18 WBC 11.2 H (4.5-11.0) T/MM3 RDW Std Deviation 51.0 H (36.9-50.2) FL Neutrophils % (Manual) 86.0 H (33-66) % Lymphocytes % (Manual) 9.0 L (23-45) % Neutrophils # (Manual) 9.6 H (1.8-7.7) T/MM3 Sodium 146 H (134-144) MEQ/L Chloride 110 H (98-107) MEQ/L BUN 28.0 H (7-17) MG/DL BUN/Creatinine Ratio 31 H (6-26) RATIO Glucose 208 H (65-110) MG/DL Calculated Osmolality 293 H (261-280) MOSM/KG Alkaline Phosphatase 127 H (38-126) U/L H & H 03/21/17 Range/Units 00:18 Hgb 13.9 (12-16) GM/DL Hct 42.6 (36-46) % Orthopedic Assessment and Plan (1) Anterior shoulder dislocation Status: Acute Qualifiers: Encounter type: initial encounter Laterality: right Qualified Code(s): S43.014A - Anterior dislocation of right humerus, initial encounter Assessment and Plan: CT scan showed a Hill-Sachs lesion that was blocking reduction in the ER. Recommendation is to proceed to the OR for reduction of the shoulder under anesthesia. Discussed with the pt and her son, the risk and possible complications of this reduction. (2) Hill-Sachs fracture of right humerus Status: Acute Qualifiers: Encounter type: initial encounter Fracture type: closed Qualified Code(s) : S42.291A - Other displaced fracture of upper end of right humerus, initial encounter for closed fracture Hospital Course Summary Disclaimer: The visit summary below is not to be considered part of the above Progress Note.
--- NOTE | 2017-03-21 08:37 | Orthopedic Progress Note ---
Date: Date: 03/21/17 Time: 831 Subjective/Severity of Illness: Alina was taken to the OR last night for CR of a right shoulder dislocation. She has a Hill-Sachs fx to the posterior humeral head. She had emesis during the reduction and the hospitalist service was consulted for possible aspiration. Pt is reporting pain 7-8 / 10 this AM. Denies numbness or tingling of the hand or arm. She is breathing okay and sats are stable. Orthopedic Objective PO Vital signs: Temperature 97.9 F 03/21/17 04:55 Pulse Rate 55 L 03/21/17 06:40 Respiratory Rate 16 03/21/17 06:40 Blood Pressure 172/71 H 03/21/17 06:40 Pulse Oximetry 92 03/21/17 06:40 Height and Weight: Height 4 ft 11 in Weight 242 lb 4.608 oz - Constitutional General Appearance: Present: alert, obese - Respiratory Exam Present: non-labored - Cardiovascular Exam Present: other (Radial pulse intact.) - Abdominal Exam Present: soft - Integumentary Exam Present: pink, warm, dry - Neurological Exam Present: intact to light touch, no deficits - Psychiatric Exam Present: alert - Labs Result Diagrams: 03/21/17 00:18 03/21/17 00:18 Abnormal lab results 03/21/17 03/21/17 Range/Units 00:18 00:18 WBC 11.2 H (4.5-11.0) T/MM3 RDW Std Deviation 51.0 H (36.9-50.2) FL Neutrophils % (Manual) 86.0 H (33-66) % Lymphocytes % (Manual) 9.0 L (23-45) % Neutrophils # (Manual) 9.6 H (1.8-7.7) T/MM3 Sodium 146 H (134-144) MEQ/L Chloride 110 H (98-107) MEQ/L BUN 28.0 H (7-17) MG/DL BUN/Creatinine Ratio 31 H (6-26) RATIO Glucose 208 H (65-110) MG/DL Calculated Osmolality 293 H (261-280) MOSM/KG Alkaline Phosphatase 127 H (38-126) U/L H & H 03/21/17 Range/Units 00:18 Hgb 13.9 (12-16) GM/DL Hct 42.6 (36-46) % Orthopedic Assessment and Plan (1) Anterior shoulder dislocation Status: Acute Qualifiers: Encounter type: initial encounter Laterality: right Qualified Code(s): S43.014A - Anterior dislocation of right humerus, initial encounter Assessment and Plan: Pt can move her elbow but we will keep the shoulder immobilized. Plan f/u in clinic to watch for possible instability. Will refer only if additional surgery is required. Considering her age and other risk factors, conservative treatment should be tried first. Hospitalist service consulted for medical management of possible aspiration and other medical needs. CM to eval for discharge needs. (2) Hill-Sachs fracture of right humerus Status: Acute Qualifiers: Encounter type: initial encounter Fracture type: closed Qualified Code(s) : S42.291A - Other displaced fracture of upper end of right humerus, initial encounter for closed fracture Hospital Course Summary Disclaimer: The visit summary below is not to be considered part of the above Progress Note.
--- NOTE | 2017-03-21 08:47 | Remote Fluorsocopy Report ---
Indication: CLOSED REDUCTION PROCEDURE: RF shoulder RT 1 view: Encounter: Initial Comparison: Radiographs and CT from today Findings: Single fluoroscopic spot image shows interval reduction of the right humeral head dislocation. Impression: Fluoroscopy as above. Fluoroscopy time is 16 seconds. Fluoroscopy dose is 838.8 mRad. .
[2017-03-21] MEDS ORDERED: ONDANSETRON 4 MG/2 ML INJECTION IVP PRN (09:02)
[2017-03-21] MEDS ORDERED: METOCLOPRAMIDE 10mg/2ml INJECTION IVP PRN (09:03)
[2017-03-21] MEDS: INSULIN ASPART 100unit/ml INJECTION SQ SCH ×2 (12:46→18:26)
[2017-03-21] MEDS: ASPIRIN 81 MG CHEWABLE TABLET PO SCH (12:48)
--- NOTE | 2017-03-21 14:27 | XRay Report ---
Indication: hypoxia PROCEDURE: XR chest 1V: Encounter: Initial Comparison: March 21, 2017 Findings: Again there is poor visualization of the left base with obscuration of the left hemidiaphragm. Right lung is grossly clear. No pneumothorax or definite pleural effusion. Cardiac silhouette remains enlarged. Mediastinal contours and pulmonary vascularity are stable. Impression: Stable appearance of the chest possible left basilar infiltrate. .
--- NOTE | 2017-03-21 15:29 | Procedure Note ---
DATE OF PROCEDURE 03/21/2017 PREPROCEDURE DIAGNOSIS Right anterior glenohumeral dislocation with Hill-Sachs lesion. POSTPROCEDURE DIAGNOSIS Right anterior glenohumeral dislocation with Hill-Sachs lesion. PROCEDURE Closed reduction of right glenohumeral joint. SURGEON Izabella Solomon MD ANESTHESIA General. COMPLICATIONS Possible aspiration. BRIEF HISTORY Mrs. Miles is an 81-year-old female who was brought to the emergency room here at [facility] early this morning with a dislocation of her shoulder. A couple attempts were made by the ER physician but were unsuccessful with reduction. I requested a CT scan which did show an engaged Hill-Sachs lesion. The patient was in quite a bit of pain so we elected to proceed with closed reduction in the operating room with general anesthesia. I discussed this with the patient and her son. I warned about possible risk of fracture during the reduction attempt. They agreed with this plan. DESCRIPTION OF PROCEDURE Mrs. Miles and her right shoulder were identified in the emergency room and she was brought back to the operating suite. She was placed on the operating room bed in a supine position. She was placed under general anesthesia. As soon as she was adequately sedated I performed a reduction maneuver using an external rotation technique. I felt a pop almost immediately and then the shoulder ranged freely. At the same time the patient began vomiting. We turned her on her side and she was suctioned. We kept her on her side during this period and I did attempt to obtain postreduction x-rays which were difficult in this position but it did appear that she was reduced. The Hill-Sachs lesion could be seen. Again, the shoulder moved freely. We placed her into a sling as we allowed her to wake up in the operating room. After she was fully awake she was brought back to the recovery room in stable condition. Chest x-ray was ordered as well as cutaneous oximetry and I consulted telemedicine physician for further management of her medical condition and possible aspiration. JEAN
[2017-03-21] MEDS: HYDROCODONE/APAP 5mg/325mg TABLET PO PRN (18:26)
[2017-03-21] MEDS ORDERED: FUROSEMIDE 20 MG/2 ML INJECTION IVP ONE (18:30)
[2017-03-21] MEDS: SIMVASTATIN 10 MG TABLET PO SCH (20:01)
[2017-03-21] MEDS: INSULIN GLARGINE 100unit/ml INJECTION SQ SCH (20:02)
[2017-03-22] MEDS: HYDROCODONE/APAP 5mg/325mg TABLET PO PRN ×4 (00:49→15:59)
[2017-03-22] MEDS: LR 1,000 ML IV SCH ×3 (03:19→23:12)
[2017-03-22] MEDS: OMEPRAZOLE 20 MG CAPSULE PO SCH (05:42)
[2017-03-22] MEDS: FentaNYL 100 MCG/2 ML INJECTION IVP PRN ×6 (05:42→23:11)
--- NOTE | 2017-03-22 07:22 | Orthopedic Progress Note ---
Date: Date: 03/22/17 Time: 713 Subjective/Severity of Illness: Alina is in pain this AM. She describes right elbow pain. Her BP is 195/83. She has required Demerol to control her pain. She denies loss of sensation or motion. I discussed Mrs. Miles with the machinist 2nd shift RN who stated she did get an order from Telemedicine for Fentanyl last night. This brought her pain down to a 0, but a repeat BP was not taken. The PO [place] doesn't seem to last the 6 hours needed between doses. Nurse did report she was confused and tried to get out of bed last night. Denies numbness or tingling of the hand or arm. She is breathing okay and sats are stable. Orthopedic Objective PO Vital signs: Temperature 96.8 F 03/22/17 04:52 Pulse Rate 63 03/22/17 04:52 Respiratory Rate 20 03/22/17 04:52 Blood Pressure 195/83 H 03/22/17 04:52 Pulse Oximetry 94 03/22/17 04:52 Height and Weight: Height 4 ft 11 in Weight 276 lb 3.827 oz - Constitutional General Appearance: Present: alert, mild distress, obese - Respiratory Exam Present: non-labored - Cardiovascular Exam Present: other (Radial pulse intact.) - Abdominal Exam Present: soft - Extremities Exam Extremities: Present: pulses intact Comments: TTP over the right lateral elbow and wrist. Intact ROM of the fingers. - Integumentary Exam Present: pink, warm, dry - Neurological Exam Present: intact to light touch, no deficits - Psychiatric Exam Present: alert - Labs Result Diagrams: 03/21/17 00:18 03/21/17 00:18 H & H 03/21/17 Range/Units 00:18 Hgb 13.9 (12-16) GM/DL Hct 42.6 (36-46) % Orthopedic Assessment and Plan (1) Anterior shoulder dislocation Status: Acute Qualifiers: Encounter type: initial encounter Laterality: right Qualified Code(s): S43.014A - Anterior dislocation of right humerus, initial encounter Assessment and Plan: I will assess her elbow and wrist pain with an X-ray. A repeat shoulder X-ray was ordered yesterday to be completed this AM and is not done yet. I spoke with the nurse to repeat a BP, if systolic is over 150, I asked her to contact the hospitalist service for intervention. We may need to contact her pharmacy to verify her home medications as she is not a reliable historian at this time. As far as her pain, she appears to be a candidate for Ofirmev. This may help her pain without the side effect of decreasing respiratory drive. Hospitalist service consulted for medical management of possible aspiration and other medical needs. CM to eval for discharge needs. (2) Hill-Sachs fracture of right humerus Status: Acute Qualifiers: Encounter type: initial encounter Fracture type: closed Qualified Code(s) : S42.291A - Other displaced fracture of upper end of right humerus, initial encounter for closed fracture Hospital Course Summary Disclaimer: The visit summary below is not to be considered part of the above Progress Note.
--- NOTE | 2017-03-22 08:33 | XRay Report ---
Indication: shoulder pain PROCEDURE: XR shoulder RT 2-3 views: Encounter: Initial Comparison: March 21, 2017 Findings: Prior Hill-Sachs impaction fracture noted in the humeral head. Small bony sliver remaining near the inferior margin of the glenoid probably arose from the humeral head based on the CT appearance. No additional new fracture. No dislocation currently. Degenerative change in the acromioclavicular and glenohumeral joints. Impression: Findings as above. .
--- NOTE | 2017-03-22 08:40 | XRay Report ---
Indication: elbow pain PROCEDURE: XR elbow RT min 3V: Encounter: Initial Comparison: None Findings: The radial head is not well profiled on two of the three views. No discrete fracture line is seen. There is suggestion of a possible small anterior elbow joint effusion. No dislocation. Impression: Possible joint effusion with suboptimal visualization of the radial head. Elbow CT could be performed for further evaluation if there is continued pain or clinical concern for fracture in the elbow. .
--- NOTE | 2017-03-22 08:42 | XRay Report ---
Indication: wrist pain PROCEDURE: XR wrist RT 3-4 views: Encounter: Initial Comparison: None Findings: There is no acute fracture, dislocation or malalignment identified. Impression: No acute osseous abnormality. .
[2017-03-22] MEDS ORDERED: SIMVASTATIN 10 MG TABLET PO SCH (09:00)
--- NOTE | 2017-03-22 09:37 | Progress Note ---
- Date 03/22/17 Subjective: Alina is seen today in follow up. She is up in the chair and reports she is having significant right arm pain following being showered and moved. Nursing staff reports they just gave pain mediation. She continued on 2 liters of oxygen. N/V intact to distal right arm. She complains of right wrist pain on exam. BP elevated at 173/73 likely related to pain. Fasting BGM 134 today. Objective Vital signs: Temperature 97.1 F 03/22/17 08:16 Pulse Rate 71 03/22/17 08:16 Respiratory Rate 18 03/22/17 08:16 Blood Pressure 173/73 H 03/22/17 08:16 Pulse Oximetry 95 03/22/17 08:16 Height/Weight/BMI: Height 1.5 m Weight 125.3 kg - Constitutional Present: mild distress, well nourished, well developed - Routine HEENT Exam Eye: Present: EOMI ENT: Present: mucous membranes moist, dentition normal - Routine Respiratory Exam Present: diminished air movement. Absent: wheezes - Routine Cardiovascular Exam Present: RRR, S1, S2. Absent: murmur - Routine Abdominal Exam Present: soft, normoactive bowel sounds, non distended. Absent: tenderness - Routine Extremities Exam Present: pulses intact, normal capillary refill, tenderness (Right arm) - Routine Skin Exam Present: intact, dry, warm - Routine Neurological Exam Present: alert, CN II-XII intact - Routine Lymphatic Exam Lymphatic: Absent: adenopathy - Routine Psychiatric Exam Present: cooperative Results - Labs CBC & Chem 7: 03/21/17 00:18 03/21/17 00:18 Assessment and Plan (1) Hypoxia Current visit: Yes Status: Acute (2) Hypertension Current visit: No Status: Chronic (3) Diabetes mellitus type 2, controlled Current visit: No Status: Chronic Assessment and Plan: Impression Hypoxia--monitor with NC O2 wean and likely more anesthesia/obesity. Duoneb once, prn albuterol and f/u CXR result. No abx for now. NPO and ST eval. R shoulder dislocation now reduced and in sling. Pain meds per primary team. PT/SW. DM2, on lantus 58u daily last taken at 2030 last night. CBGs, SSI, ultimately diabetic diet pendint ST eval. Essential HTN Dyslipidemia GERD on PPI. Leukocytosis with no fever likely stress induced. Repeat with labs tomorrow AM and monitor temp. Plan Xray of right wrist was completed this morning- negative for acute fracture Elbow Xray reports possible join effusion? Work on weaning down oxygen as able Daily weights. Pain does not appear to be controlled well. Will increase [place] to 1-2 tabs every 6 hours and can use Fentanyl between for breakthrough pain Continue to monitor blood pressure that was elevated. Suspected is related to pain Case discussed with attending Dr Webber DVT Prophylaxis: SCD's Resuscitation Status: Full Code - Physician Narrative Physician: Sydney Webber MD Narrative: Date: 03/22/17 Time: 2100 I have independently evaluated and examined this patient. I reviewed the chart, the patient's history, and the GEOSPATIAL ENGINEER/PA's documented findings as above. We discussed and formulated the assessment and plan as above with additions as below: Mrs. Miles was seen hours ago at which time she reported that she slept well yesterday and that her whole right side seems swollen and painful. She denied dyspnea and reported that she has a little bit of cough but it seems usual for her. Appetite is good and she denied nausea or vomiting. Comfortable at the time of my evaluation, talkative Respirations nonlabored, diminished airflow but anterior breath sounds are clear Oxygen saturation stable on supplemental O2 but attempts to wean off of oxygen have failed. Reassess chest x-ray in a.m. for atelectasis. Has received fentanyl 5 times today. [place] 5 increased to 1 or 2 tablets every 6 hours but may require higher dose [place] for pain control short-term. Guards right shoulder. Labile blood pressure-optimally on an VIOLA inhibitor or ARB due to known diabetes , initiate low-dose losartan. Discussed with case management and orthopedics. Converted to inpatient due to persistent hypoxia and need for IV narcotics for pain control. Hospital Course Summary Disclaimer: The visit summary below is not to be considered part of the above Progress Note. Hospital Course: 03/22 Xray of right wrist was completed this morning- negative for acute fracture Elbow Xray reports possible join effusion? Work on weaning down oxygen as able Daily weights. Pain does not appear to be controlled well. Will increase [place] to 1-2 tabs every 6 hours and can use Fentanyl between for breakthrough pain Continue to monitor blood pressure that was elevated. Suspected is related to pain Case discussed with attending Dr Webber
[2017-03-22] MEDS: MULTI-VITAMIN PLAIN TABLET PO SCH (09:52)
[2017-03-22] MEDS: ASPIRIN 81 MG CHEWABLE TABLET PO SCH (09:52)
[2017-03-22] MEDS: OMEGA-3 ACID ESTERS 1 GM CAPSULE PO SCH (09:56)
[2017-03-22] MEDS: INSULIN ASPART 100unit/ml INJECTION SQ SCH ×3 (09:57→18:16)
[2017-03-22] MEDS: ALBUTEROL/IPRATROPIUM 2.5mg-0.5mg/3ml NEB AEROSOL PRN (13:11)
[2017-03-22] MEDS ORDERED: GUAIFENESIN/CODEINE 5ml ORAL LIQUID PO PRN (14:25)
[2017-03-22 14:34] VITALS: BMI 50.3
[2017-03-22] MEDS: SIMVASTATIN 10 MG TABLET PO SCH (20:11)
[2017-03-22] MEDS: INSULIN GLARGINE 100unit/ml INJECTION SQ SCH (20:12)
[2017-03-23] MEDS: OMEPRAZOLE 20 MG CAPSULE PO SCH (05:50)
--- NOTE | 2017-03-23 08:35 | XRay Report ---
Indication: hypoxia PROCEDURE: XR chest 1V: Encounter: Initial Comparison: March 21, 2017 Findings: Better visualization of the left diaphragm on today's study. No focal consolidative pneumonia. No pleural effusion or pneumothorax. Cardiac silhouette remains moderately enlarged. Mediastinal contours are stable. Pulmonary vascularity appears normal. Impression: No focal pneumonia. .
[2017-03-23] MEDS: LR 1,000 ML IV SCH (08:48)
[2017-03-23] MEDS: ALBUTEROL/IPRATROPIUM 2.5mg-0.5mg/3ml NEB AEROSOL PRN (09:00)
[2017-03-23] MEDS ORDERED: LOSARTAN 50 MG TABLET PO SCH (09:00)
[2017-03-23] MEDS: ASPIRIN 81 MG CHEWABLE TABLET PO SCH (09:02)
[2017-03-23] MEDS: OMEGA-3 ACID ESTERS 1 GM CAPSULE PO SCH (09:02)
[2017-03-23] MEDS: MULTI-VITAMIN PLAIN TABLET PO SCH (09:02)
[2017-03-23] MEDS: INSULIN ASPART 100unit/ml INJECTION SQ SCH ×2 (09:02→13:06)
--- NOTE | 2017-03-23 09:42 | Progress Note ---
- Date 03/23/17 Subjective: Alina is seen this morning in follow-up. Overall, she appears much more comfortable than yesterday. She is moving her right arm independently and attempting to eat with it. Instructed her to use left arm instead. She is breathing on room air and noted to have some wheezing. She is eating eggs and toast without any difficulty. The catheter remains intact. Objective Vital signs: Temperature 98.5 F 03/23/17 07:00 Pulse Rate 106 H 03/23/17 09:28 Respiratory Rate 25 H 03/23/17 09:28 Blood Pressure 153/65 H 03/23/17 07:00 Pulse Oximetry 97 03/23/17 09:28 Height/Weight/BMI: Height 1.5 m Weight 129 kg Body Mass Index 50.3 - Constitutional Present: no acute distress, well nourished, well developed - Routine HEENT Exam Eye: Present: EOMI ENT: Present: mucous membranes moist, dentition normal - Routine Respiratory Exam Present: wheezes - Routine Cardiovascular Exam Present: RRR, S1, S2. Absent: murmur - Routine Abdominal Exam Present: soft, normoactive bowel sounds, non distended. Absent: tenderness - Routine Extremities Exam Present: pulses intact Comments: Right arm pain - Routine Skin Exam Present: intact, dry, warm - Routine Neurological Exam Present: alert, oriented X3, CN II-XII intact - Routine Lymphatic Exam Lymphatic: Absent: adenopathy - Routine Psychiatric Exam Present: normal affect Results - Labs CBC & Chem 7: 03/21/17 00:18 03/21/17 00:18 Assessment and Plan (1) Hypoxia Current visit: Yes Status: Acute (2) Hypertension Current visit: No Status: Chronic (3) Diabetes mellitus type 2, controlled Current visit: No Status: Chronic Assessment and Plan: Impression Hypoxia--monitor with NC O2 wean and likely more anesthesia/obesity. Duoneb once, prn albuterol and f/u CXR result. No abx for now. NPO and ST eval. R shoulder dislocation now reduced and in sling. Pain meds per primary team. PT/SW. DM2, on lantus 58u daily last taken at 2030 last night. CBGs, SSI, ultimately diabetic diet pendint ST eval. Essential HTN Dyslipidemia GERD on PPI. Leukocytosis with no fever likely stress induced. Repeat with labs tomorrow AM and monitor temp. Plan Right arm appears to be less painful today Give Duoneb for wheezing. Is weaned off oxygen Asked nursing staff to remove Vasquez cath. Will monitor for urinary retention Planning for discharge to [facility] later today Discussed case with Dr Solomon Resuscitation Status: Full Code - Physician Narrative Physician: Sydney Webber MD Narrative: Date: 03/23/17 Time: 1100 I have independently evaluated and examined this patient. I reviewed the chart, the patient's history, and the MACHINIST SET UP/PA's documented findings as above. We discussed and formulated the assessment and plan as above with additions as below: Mrs. Miles was up in a chair when seen. Speech remains mumbled but she was able to tell me that she somewhat short of breath today and that she is always that way. She did not appear to be as dyspneic speaking as she was on admission; she remains very talkative. Shoulder pain is much improved compared to yesterday. Confusion reported overnight by nursing. NAD, alert Diminished breath sounds but clear in the upper anterior burgos; right arm in sling precludes auscultation of right lower and lateral lung field as does positioning. Abdomen benign Underlying dementia clearly evident-I don't believe patient can live alone safely and family indicated concerns at time of admission. Hypoxia improving progressively anticipate resolution with increased activity and decrease narcotic use. Stable for discharge to snf has planned. May require intermittent oxygen use in the near future. Hospital Course Summary Disclaimer: The visit summary below is not to be considered part of the above Progress Note. Hospital Course: 03/22 Xray of right wrist was completed this morning- negative for acute fracture Elbow Xray reports possible join effusion? Work on weaning down oxygen as able Daily weights. Pain does not appear to be controlled well. Will increase [place] to 1-2 tabs every 6 hours and can use Fentanyl between for breakthrough pain Continue to monitor blood pressure that was elevated. Suspected is related to pain Case discussed with attending Dr Webber / Right arm appears to be less painful today Give Duoneb for wheezing. Is weaned off oxygen Asked nursing staff to remove Vasquez cath. Will monitor for urinary retention Planning for discharge to [facility] later today Discussed case with Dr Solomon
--- NOTE | 2017-03-23 11:45 | Extended Care Facility Orders ---
Admission Orders Admit to:: [facility] Allergies/Adverse Reactions: Allergies latex Allergy (Intermediate, Verified 03/23/17 03:46) RASH VAGINAL IRRITATION WITH CONDOMS morphine Allergy (Mild, Verified 03/23/17 03:46) headache, NAUSEA Penicillins Allergy (Mild, Verified 03/23/17 03:46) rash adhesive tape Allergy (Verified 03/23/17 03:46) Admitting Diagnosis: Shoulder dislocation Admitting Physician: Florin Solomon MD Attending Physician: Florin Solomon MD Code Status: Full Code Anticiapted Length of Stay: 30 days or less Rehab Potential: fair Rehab Prognosis: fair Diet: 03/22/17 Dinner Cardiac Consistent Carbohydrate Diet [DIET] Calorie Level: 1800 Sodium Restriction: 2GRAM Fluid Consistency: REGLIQU Food Consistency: CHMEAT Fat Content: LOW May use Facility Protocol or Standing Orders: Yes May have flu vaccine: Yes Evaluations/Treatment: PT (No ROM or use of the right shoulder. May work on elbow and wrist ROM on the right. ), OT [facility] Certification: I certify that SNF services are required to be given on an Inpatient basis because of the patients need for shelter care on a continuing basis for the condition(s) for which he/she received inpatient hospital services prior to his/her transfer to the SNF. SNF inpatient care is necessary for the following reasons Indication for [facility]: Diabetic Assessment, Other (PT / OT with severe mobility limitations, Need for ADL training post injury. ) - Additional Information In Event of Arrest: Start CPR,call 911,send patient to the ER Resident is Aware of Diagnosis: Yes Referrals: Dominik Romeo MD [Primary Care Provider] - (Follow up in 1 week ) Florin Solomon MD [Physician] - 2 Weeks (Call Dr Solomon's office to make a follow up appt in 2 weeks. [phone].) Additional Orders: Use a sling on the right arm at all times. No ROM or use of the right shoulder but may work on ROM of the right elbow and wrist. Pt is at risk of recurrent dislocation of the right shoulder if precautions are not followed. Use oxygen as need to keep sats >90%. Encourage Incentive Spirometer q 4 hrs while awake. Do BGM's per protocol. Call her PCP for diabetic needs or changes in orders.
--- NOTE | 2017-03-23 12:01 | Discharge Summary ---
Orthopedic Discharge Info Date of admission: 03/22/17 09:49 Anticipated date of discharge: 03/23/17 Primary care physician: Dominik Romeo MD Attending Physician: Florin Solomon MD - Discharge Diagnosis (1) Anterior shoulder dislocation Qualifiers: Encounter type: initial encounter Laterality: right Qualified Code(s): S43.014A - Anterior dislocation of right humerus, initial encounter Status: Acute (2) Hill-Sachs fracture of right humerus Qualifiers: Encounter type: initial encounter Fracture type: closed Qualified Code(s) : S42.291A - Other displaced fracture of upper end of right humerus, initial encounter for closed fracture Status: Acute - Procedures Procedures: Procedures Open and other right hemicolectomy (08/24/09) Other lysis of peritoneal adhesions (08/24/09) Closed reduction of the right shoulder under anesthesia 03/21/17 - Laboratory Result Diagrams: 03/21/17 00:18 03/21/17 00:18 Orthopedic Discharge HPI - HPI Comments Alina is an 81 yo lady who lives alone but has a son that helps her with decision making and living needs. She got up last evening around 2100 to check a door when she slipped and fell. She injured her right shoulder and had severe pain. She called her son and then EMS. Pt was brought to [facility] where xrays showed a dislocation of the right shoulder. CT scan showed the same with a Hill-Sachs deformity of the posterior humeral head. Attempts to reduce this in ER failed and Dr Solomon was contacted for surgical reduction. Pt denies other injury. Denies numbness or tingling of her arm or fingers. Orthopedic Hospital Course Hospital course: 03/23/17 11:54 After evaluation in the ER, Alina was found to have a dislocation of the right shoulder with a large Hill-Sachs deformity that was blocking successful reduction. She was then taken to the OR and given anesthesia to provide adequate sedation to reduce the shoulder. C-arm images helped confirm good reduction of the shoulder joint in the OR. Unfortunately the pt had emesis while sedated with anesthesia and there was concern for aspiration. The hospitalist service was consulted and CXR was obtained. No obvious aspiration was identified. The pt had hypoxia that was thought to be due to her obesity and sedation. This improved prior to discharge. She was given breathing treatments and serial CXR did not show evidence of aspiration or pneumonia. She was weaned off oxygen and breathing treatments were reduced to a PRN schedule. She is diabetic and blood sugars were managed by the hospitalist service with scheduled and sliding scale insulin. Pt had elbow and wrist pain but x-rays did not reveal acute fractures in these areas. Will continue to monitor. PT and OT were consulted to work with mobility and ADLs. Pt was borderline in getting by at home before this injury and at this time she is completely incapable of caring for herself at home. Placement in a SNU was decided upon by the pt and her son. They will work on her mobility and ADL deficiencies as well as monitor her medical comorbidities. She will need to use a sling on the right shoulder to prevent recurrent dislocation. Case Management was involved in facilitating this process. Her condition at discharge is stable. Disposition is SNU. Plan f/u with Dr Solomon in 2 weeks for xrays. Care extended to > 2 midnight stays?: Yes Discharge Plan - Med Rec/Dispo Referrals/Follow Up: Florin Solomon MD [Physician] - 2 Weeks (Call Dr Solomon's office to make a follow up appt in 2 weeks. [phone].) Dominik Romeo MD [Primary Care Provider] - (Follow up in 1 week ) Prescriptions: New Albuterol Neb (0.083%) [Proventil Neb (0.083%)] 2.5 mg AEROSOL RTQID PRN each PRN Reason: wheezing [place]-3 Acid Ethyl Esters [Lovaza] 1 gm PO DAILY cap Losartan [Cozaar] 25 mg PO DAILY tab Hydrocodone/APAP 5/325 [Ethel 5/325] 1 - 2 tab PO Q6H PRN #60 tab PRN Reason: Pain Continue Aspirin [[place] Aspirin] 81 mg PO DAILY Novolog (insulin aspart) 100 unit/mL 26 unit SQ TID 89 Days #69.42 ml Lantus (insulin glargine) 100 unit/mL SQ 58 unit SQ HS ml multivitamin tablet 1 tab PO QAM Prilosec (Omeprazole) 20 mg capsule,delayed release 20 mg PO DAILY cap Zocor (simvastatin) 10 mg tablet 10 mg PO QAM No Action Hydrocodone/APAP 5/325 [Ethel 5/325] 1 tab PO Q6H PRN PRN Reason: Pain omega-3 fatty acids-fish oil 1 cap PO DAILY - Disposition 03 To SNU Not [facility] (SNF) - Dismissal Complete Discharge Instructions are:: Complete
[2017-03-23 12:22] VITALS: BP 143/61; PULSE 72; RESP 18; TEMP 98; O2SAT 94
== END 2017-03-23 15:25 | DRG 563 ==
LOC: ED 22:00 → SUR 03-21 03:34 → SRG 03-21 03:34 → NMC.PERIOP 03-21 03:37 → SRG 03-21 04:55
PROVIDERS: ADMIT Orthopaedic Surgery; ATTEND Orthopaedic Surgery

== ENCOUNTER 2017-04-02 11:40 | Inpatient (IN) ==
[2017-04-02] MEDS ORDERED: ONDANSETRON 4 MG/2 ML INJECTION IVP PRN (11:58)
[2017-04-02] MEDS ORDERED: CLINDAMYCIN PB 900 MG/50 ML BAG IV ONE (11:58)
[2017-04-02] MEDS ORDERED: GLUCOSE ORAL GEL 40% 37.5gm PO PRN (12:08)
[2017-04-02] MEDS ORDERED: ALBUTEROL 2.5mg/3ml (0.083%) NEB AEROSOL PRN (12:11)
[2017-04-02] MEDS: NS 1,000 ML IV SCH (14:00)
[2017-04-02 14:19] VITALS: BMI 49.7
[2017-04-02] MEDS ORDERED: DEXTROSE 50% SYRINGE 50ml (1 AMP) IVP PRN (15:27)
--- NOTE | 2017-04-02 15:28 | Consult Note ---
Consult Information - Data of Consult Consult date: 04/02/17 Requesting Physician: Florin Solomon MD Primary Care Provider: Dominik Romeo MD - Consult Narrative Reason for consult: Medical mangement of DM, HTN History of present illness: Elizabeth is a 81-year-old female who is known to the hospitalist services from recent admissions. Is originally admitted on 03/20/17 following a fall with dislocation of the right shoulder. She underwent a closed reduction of the right shoulder under anesthesia on 03/21/17. She was discharged on 03/23/17 at which time she went to [facility] skilled rehabilitation. She is admitted again today on 04/02/17 for scheduled right hemiarthroplasty of the right shoulder. She is seen in consultation on arrival to [facility]. She is able to give majority of history and does remember falling and breaking her "shoulder". However, is unclear on all the specific details. She is able to report she has been at [facility] for skilled rehabilitation. Does verbalize dreading another surgery. At this time. Reports pain of the shoulder and arm is well- controlled. Patient basic admission laboratories were reviewed, CBC is normal, chemistry panel unremarkable. Past Medical History Patient Stated Medical History Rheumatic fever (Resolved Medical) Gout (Chronic Medical) Osteoporosis (Chronic Medical ~2011) Osteoarthritis (Chronic Medical) GI bleed (Chronic Medical) Colon polyps (Chronic Medical) GERD (gastroesophageal reflux disease) (Chronic Medical) Hepatitis (Chronic Medical) Cataract (Chronic Medical) Colon cancer (Resolved Medical ~2009) Atrial fibrillation (Chronic Medical) Chest pain (Chronic Medical) Diabetes mellitus type 2, controlled (Chronic Medical ~2000) Diabetic nephropathy associated with type 2 diabetes mellitus (Chronic Medical ~ 03/2015) Hyperlipidemia LDL goal <100 (Chronic Medical) Hypertension (Chronic Medical) Morbid obesity with BMI of 45.0-49.9, adult (Chronic Medical) Surgical History: -Hernia Repairs. -Tubal Ligation - 1965. -Colectomy - 2009. -Partial Hysterectomy - age 40. -Bilat Cataract Removal - 2012. - Colonoscopies. CR R shoulder 03/21/17 Family History Updates: Family History. Mother . Lung cancer. Daughter. Thyroid cancer - Social History Smoking status: Former smoker Substance use type: does not use Alcohol intake frequency: does not drink Current residence: [place] Social history: PCp Dr Holdeman Review of Systems All systems PM: 10-point ROS was reviewed, no additional remarkable complaints except - Musculoskeletal Musculoskeletal Comments: Right arm/shoulder pain Medications Home Medications Medication Instructions Recorded Confirmed Type Lantus (insulin glargine) 100 54 unit SQ HS ml 01/09/17 04/02/17 History unit/mL SQ Novolog (insulin aspart) 100 26 unit SQ TIDWM 89 Days #69.42 ml 01/09/17 History unit/mL Prilosec (Omeprazole) 20 mg 20 mg PO DAILY cap 01/09/17 04/02/17 History capsule,delayed release Zocor (simvastatin) 10 mg tablet 10 mg PO QAM 01/09/17 04/02/17 History multivitamin tablet 1 tab PO QAM 01/09/17 04/02/17 History omega-3 fatty acids-fish oil 1 cap PO DAILY 01/09/17 04/02/17 History Aspirin [[place] Aspirin] 81 mg PO DAILY 02/02/17 04/02/17 History Acetaminophen 650 mg PO Q4HR PRN MDD 3000 MG 04/02/17 04/02/17 History Hydrocortisone 2.5% Cream 30 applicatio RECTALLY BID 04/02/17 04/02/17 History [Anusol-Hc 2.5% Cream] Losartan [Cozaar] 50 mg PO DAILY 04/02/17 04/02/17 History Simvastatin [Zocor] 10 mg PO HS 04/02/17 04/02/17 History Torsemide 10 mg PO DAILY 04/02/17 04/02/17 History Allergies Allergy/AdvReac Type Severity Reaction Status Date / Time latex Allergy Intermediate RASH Verified 04/02/17 10:42 morphine Allergy Mild headache, Verified 04/02/17 10:42 NAUSEA Penicillins Allergy Mild rash Verified 04/02/17 10:42 adhesive tape Allergy Verified 04/02/17 10:42 Exam Vital Signs: Temperature 97.3 F 04/02/17 11:48 Pulse Rate 56 L 04/02/17 11:48 Respiratory Rate 18 04/02/17 11:48 Blood Pressure 170/61 H 04/02/17 11:48 Pulse Oximetry 96 04/02/17 11:48 Height/Weight/BMI: Height 1.5 m Weight 111.7 kg Body Mass Index 49.7 - Constitutional Present: no acute distress, well nourished, well developed - Routine HEENT Exam Eye: Present: EOMI ENT: Present: mucous membranes moist, dentition normal - Routine Respiratory Exam Present: CTA bilaterally. Absent: wheezes - Routine Cardiovascular Exam Present: RRR, S1, S2. Absent: murmur - Routine Abdominal Exam Present: soft, normoactive bowel sounds, non distended. Absent: tenderness - Routine Extremities Exam Present: pulses intact Comments: Right arm in sling - Routine Back/Spine/Pelvis Exam Back/Spine: Present: full ROM - Routine Skin Exam Present: intact, dry, warm - Routine Neurological Exam Present: alert, oriented X3, CN II-XII intact - Routine Psychiatric Exam Present: normal affect, cooperative Results - Labs CBC & Chem 7: 04/02/17 12:18 04/02/17 12:18 Assessment and Plan (1) Hill-Sachs fracture of right humerus Current visit: No Status: Acute Assessment and Plan: Impression S/P Right shoulder dislocation with Hill-Sachs Deformity A-Fibrillation HTN DM type 2 GERD Hyperlipidemia Morbid obesity with BMI 49.7 Hx GI Bleed Plan Admission under the care of Dr. Solomon for scheduled right hemiarthroplasty of the right shoulder tomorrow 04/03/17. Hospital services are consulted for medical management of existing comorbidities. Monitor Accu-Cheks. Patient did have hypoglycemia at 51. Recommended use utilizing dextrose as needed per hypoglycemic protocol. Will be nothing by mouth after midnight. Normal saline at 75 ML per hour for gentle hydration. Preop EKG revels rate controlled A-fib. She does have a known hx. Does not appear to be chronically anticoagulated other than ASA. Will need to review home meds post-op Recheck CBC and BMP periodically Postoperatively. Hospital services will continue to follow patient and medically manage existing comorbidities during her stay at [facility]. It does appear that patient is a full code. At time of discharge medical care will return to primary care provider, Dr. Romeo. Tiffany Will continue Lantus, but give [address] of her home 54 unit. Monitor sugars and increase Lantus as indicated. Initiate NovoLog 20 units with meals (Home Dose 26) - hold tomorrows am NovoLog as pt NPO for surgery. Start IS for pulmonary toilet. Will check CXR now secondary to cough. HOLD Cozaar until after surgery to decrease risk for hypotension and JANET. DVT Prophylaxis: SCD's Resuscitation Status: Full Code - Time spent with patient Time with patient PN: 35 minutes - Physician Narrative Physician: Gerry Allen MD Narrative: Date: 04/02/17 Time: 1521 Have independently interviewed and examined pt. Chart reviewed. Case discussed with my PRINTING MACHINE OPERATOR TAPE RULES. Care plan developed with my supervision; agree with above. Admitted today for anticipated right shoulder surgery tomorrow. Did have fall at end on February resulting in right shoulder dislocation with Hill-Sachs Deformity. Admitted and had reduction of shoulder. Hospital course slowed secondary to hypoxia. Since discharge, has been recovering at [facility] for skilled care. Notes persistent pain with any movement of her right upper ext. Sling helps, but still needs to prop up forearm to decrease discomfort. Has had episodes where her right hand tingles. Bowel function slow during last admission -has been having bowel movements on skilled, sometimes slightly loose. Breathing fairly stable-does report cough, but not chest congestion or pain with breathing. Mild SOA with activities, but not with any significant change. Not having chest pressure, pain or heaviness. No ab pain or nausea. Appetite stable. Lungs: decreased bilaterally, no distress on RA. CV: irregularly irregular AB : soft obese nt/nd +BS MSE: awake alert Plan: Will check preoperative CXR secondary to cough. IS for pulmonary toilet. Will give only 25 units Lantus tonight - monitor sugars and increase post op as needed. NovoLog 20 units before meal (home 26), increasing as indicated. Hold Cozaar preoperatively to decrease risk for hypotension and JANET - restart after surgery once BP and renal status stable. Hospitalist will follow patient during her stay. Hospital Course Summary Disclaimer: The visit summary below is not to be considered part of the above Progress Note. Hospital Course: Impression S/P Right shoulder dislocation with Hill-Sachs Deformity A-Fibulation HTN DM type 2 GERD Hyperlipidemia Morbid obesity Hx GI Bleed Plan Admission under the care of Dr. Solomon for scheduled right hemiarthroplasty of the right shoulder tomorrow 04/03/17. Hospital services are consulted for medical management of existing comorbidities. Monitor Accu-Cheks. Patient did have hypoglycemia at 51. Recommended use utilizing dextrose as needed per hypoglycemic protocol. Will be nothing by mouth after midnight. Her most saline at 75 ML per hour for gentle hydration Preop EKG revels rate controlled A-fib. She does have a known hx. Does not appear to be chronically anticoagulated other than ASA. Will need to review home meds post-op Recheck CBC and BMP periodically Postoperatively. Hospital services will continue to follow patient and medically manage existing comorbidities during her stay at [facility]. It does appear that patient is a full code At time of discharge medical care will return to primary care provider, Dr. Romeo
[2017-04-02] MEDS ORDERED: BISACODYL 10 MG SUPPOSITORY RECTALLY PRN (15:54)
[2017-04-02] MEDS ORDERED: POLYETHYL GLYCOL 3350 17gm PACKET PO PRN (15:55)
--- NOTE | 2017-04-02 18:00 | Orthopedic History & Physical ---
Orthopedic HPI - HPI Comments Mrs. Miles is an 81-year-old female who I recently first met after a shoulder dislocation which required reduction in the operating room under anesthesia. Reduction was attempted in the months room but was unsuccessful likely due to the Hill-Sachs lesion. She was in the hospital for a couple days for medical management and then discharged [facility]. She read my office today for follow-up appointment and x-rays showed that she was again dislocated. She is on room call us or in time when the shoulder my dislocated again but does recall bumping it several times. She has been in a sling since discharge. She only complained of right shoulder pain to me today. [facility] Patient Stated Medical History Dementia Yes Angina No Hypertension Yes Asthma No Sleep Apnea Yes: likely Diabetes Mellitus Type 2 Yes Gastroesophageal Reflux Yes: controlled with meds Disease Hx Incontinence Yes Osteoarthritis Yes MRSA Yes Anesthesia Reactions No Clinic Medical History (Last Reviewed 04/02/17 @ 10:41 by Nitza Salazar RN) Rheumatic fever (Resolved Medical) Gout (Chronic Medical) Osteoporosis (Chronic Medical ~2011) Osteoarthritis (Chronic Medical) GI bleed (Chronic Medical) Colon polyps (Chronic Medical) GERD (gastroesophageal reflux disease) (Chronic Medical) Hepatitis (Chronic Medical) Cataract (Chronic Medical) Colon cancer (Resolved Medical ~2009) Atrial fibrillation (Chronic Medical) Chest pain (Chronic Medical) Diabetes mellitus type 2, controlled (Chronic Medical ~2000) Diabetic nephropathy associated with type 2 diabetes mellitus (Chronic Medical ~ 03/2015) Hyperlipidemia LDL goal <100 (Chronic Medical) Hypertension (Chronic Medical) Morbid obesity with BMI of 45.0-49.9, adult (Chronic Medical) Surgical History: -Hernia Repairs. -Tubal Ligation - 1965. -Colectomy - 2009. -Partial Hysterectomy - age 40. -Bilat Cataract Removal - 2012. - Colonoscopies. CR R shoulder 03/21/17 Family History: Family History (Last Reviewed 04/02/17 @ 10:41 by Nitza Salazar RN) Mother Lung cancer Daughter Thyroid cancer - Social History Smoking status: Former smoker Current residence: [facility] Review of Systems - Constitutional Constitutional: Absent: chills, fever(s), night sweats - Cardiovascular Cardiovascular: Absent: chest pain, palpitations - Respiratory Respiratory: Absent: cough, dyspnea - Gastrointestinal Gastrointestinal: Absent: abdominal pain, nausea, vomiting - Genitourinary Genitourinary Female: Absent: dysuria - Musculoskeletal Musculoskeletal: Present: as per HPI - Integumentary/Breasts Integumentary: Absent: lesions, rash - Neurological Neurological: Absent: numbness, tingling Medications Home Medications Medication Instructions Recorded Confirmed Type Lantus (insulin glargine) 100 54 unit SQ HS ml 01/09/17 04/02/17 History unit/mL SQ Novolog (insulin aspart) 100 26 unit SQ TIDWM 89 Days #69.42 ml 01/09/17 History unit/mL Prilosec (Omeprazole) 20 mg 20 mg PO DAILY cap 01/09/17 04/02/17 History capsule,delayed release Zocor (simvastatin) 10 mg tablet 10 mg PO QAM 01/09/17 04/02/17 History multivitamin tablet 1 tab PO QAM 01/09/17 04/02/17 History omega-3 fatty acids-fish oil 1 cap PO DAILY 01/09/17 04/02/17 History Aspirin [[place] Aspirin] 81 mg PO DAILY 02/02/17 04/02/17 History Acetaminophen 650 mg PO Q4HR PRN MDD 3000 MG 04/02/17 04/02/17 History Hydrocortisone 2.5% Cream 30 applicatio RECTALLY BID 04/02/17 04/02/17 History [Anusol-Hc 2.5% Cream] Losartan [Cozaar] 50 mg PO DAILY 04/02/17 04/02/17 History Simvastatin [Zocor] 10 mg PO HS 04/02/17 04/02/17 History Torsemide 10 mg PO DAILY 04/02/17 04/02/17 History Allergies Allergy/AdvReac Type Severity Reaction Status Date / Time latex Allergy Intermediate RASH Verified 04/02/17 10:42 morphine Allergy Mild headache, Verified 04/02/17 10:42 NAUSEA Penicillins Allergy Mild rash Verified 04/02/17 10:42 adhesive tape Allergy Verified 04/02/17 10:42 Orthopedic Exam Vital signs: Temperature 97.6 F 04/02/17 16:00 Pulse Rate 55 L 04/02/17 16:00 Respiratory Rate 24 04/02/17 16:31 Blood Pressure 156/63 H 04/02/17 16:00 Pulse Oximetry 96 04/02/17 16:00 - Constitutional General Appearance: Present: well developed, well nourished - Respiratory Exam Present: non-labored - Cardiovascular Exam Present: pedal pulses intact - Extremities Exam Present: pulses intact Comments: Pain with any range of motion of the right shoulder. Full range of motion of her wrist and digits. - Integumentary Exam Present: pink, warm, dry - Neurological Exam Present: intact to light touch, no deficits - Psychiatric Exam Present: alert, normal affect - Labs Result Diagrams: 04/02/17 12:18 04/02/17 12:18 Abnormal lab results 04/02/17 04/02/17 Range/Units 12:18 12:18 RDW Std Deviation 52.6 H (36.9-50.2) FL BUN 25.0 H (7-17) MG/DL Glucose 62 L (65-110) MG/DL Hemoglobin A1c 6.0 H (4.0-5.7) % H & H 04/02/17 Range/Units 12:18 Hgb 13.0 (12-16) GM/DL Hct 40.4 (36-46) % - Diagnostic results Other Results: image reviewed (3 views of right shoulder show an anterior dislocation) Orthopedic Assessment and Plan (1) Anterior shoulder dislocation Status: Acute Qualifiers: Encounter type: subsequent encounter Laterality: right Qualified Code(s) : S43.014D - Anterior dislocation of right humerus, subsequent encounter Assessment and Plan: I reviewed with the patient and her son treatment options. With her large Hill- Sachs lesion I think she will continue to dislocate for this reason I recommended a hemiarthroplasty. I recommended admitting her today implant surgery tomorrow. They agree with this plan and surgery will be scheduled tomorrow. (2) Hill-Sachs fracture of right humerus Status: Acute Qualifiers: Encounter type: initial encounter Fracture type: closed Qualified Code(s) : S42.291A - Other displaced fracture of upper end of right humerus, initial encounter for closed fracture Hospital Course Summary Disclaimer: The visit summary below is not to be considered part of the above Progress Note. Hospital Course: Impression S/P Right shoulder dislocation with Hill-Sachs Deformity A-Fibulation HTN DM type 2 GERD Hyperlipidemia Morbid obesity Hx GI Bleed Plan Admission under the care of Dr. Solomon for scheduled right hemiarthroplasty of the right shoulder tomorrow 04/03/17. Hospital services are consulted for medical management of existing comorbidities. Monitor Accu-Cheks. Patient did have hypoglycemia at 51. Recommended use utilizing dextrose as needed per hypoglycemic protocol. Will be nothing by mouth after midnight. Her most saline at 75 ML per hour for gentle hydration Preop EKG revels rate controlled A-fib. She does have a known hx. Does not appear to be chronically anticoagulated other than ASA. Will need to review home meds post-op Recheck CBC and BMP periodically Postoperatively. Hospital services will continue to follow patient and medically manage existing comorbidities during her stay at [facility]. It does appear that patient is a full code At time of discharge medical care will return to primary care provider, Dr. Romeo
[2017-04-02] MEDS: INSULIN ASPART 100unit/ml INJECTION SQ SCH (18:23)
[2017-04-02] MEDS ORDERED: INSULIN GLARGINE 100unit/ml INJECTION SQ SCH (21:00)
--- NOTE | 2017-04-02 21:22 | XRay Report ---
EXAM: XR chest 1V COMPARISON: 03/23/2017. 03/21/2017. HISTORY: Pre-operative, cough . Shoulder fracture FINDINGS: The heart is enlarged. Chronic interstitial changes are noted. The pulmonary vascularity appears unremarkable. The lungs are otherwise clear. There is no evidence for pleural effusion. There is no evidence for a pneumothorax. There is an anterior inferior right shoulder dislocation. Concavity to the lateral humeral head is noted which could represent a Hill Sachs fracture. There may be a grade 3 AC joint separation as well. IMPRESSION: 1. Cardiomegaly. 2. Chronic interstitial changes. 3. Right shoulder dislocation with a Hill Sachs fracture. [place] [facility] [place]
[2017-04-02] MEDS: Oxycodone *IR* 5 MG TABLET PO PRN (23:43)
[2017-04-03] MEDS: NS 1,000 ML IV SCH ×2 (05:06→15:11)
[2017-04-03] MEDS: OMEPRAZOLE 20 MG CAPSULE PO SCH (06:39)
[2017-04-03] MEDS: INSULIN ASPART 100unit/ml INJECTION SQ SCH ×3 (08:11→18:30)
[2017-04-03] MEDS: HYDROCORTISONE 2.5% CREAM 30gm RECTALLY SCH ×2 (08:12→21:30)
[2017-04-03] MEDS: NOZIN NASAL SWAB NAS ONE ×4 (08:59→11:38)
[2017-04-03] MEDS ORDERED: NS 1,000 ML IV SCH (09:30)
[2017-04-03] MEDS ORDERED: ROPIVACAINE 0.5% (5mg/ml) 30ml INJ ONE (09:58)
[2017-04-03] MEDS ORDERED: FAMOTIDINE PB 20 MG/50 ML BAG IV ONE (10:01)
[2017-04-03] MEDS ORDERED: BUPIVACAINE 0.25% (2.5mg/ml) PF 30ml INJECTION ONE (10:15)
[2017-04-03] MEDS ORDERED: ONDANSETRON 4 MG/2 ML INJECTION ONE (10:22)
[2017-04-03] MEDS ORDERED: SUGAMMADEX 200mg/2ml INJECTION IVP ONE (10:23)
[2017-04-03] MEDS ORDERED: ROCURONIUM 50 MG/5 ML INJECTION IVP ONE (10:23)
[2017-04-03] MEDS ORDERED: PROPOFOL 20 ML ONE (10:23)
[2017-04-03] MEDS ORDERED: FentaNYL 250 MCG/5 ML INJECTION ONE (10:44)
[2017-04-03] MEDS ORDERED: VANCOMYCIN 1,000 MG INJECTION ONE (11:25)
[2017-04-03] MEDS ORDERED: EPHEDRINE 50mg/ml INJECTION ONE (11:45)
[2017-04-03] MEDS ORDERED: SALINE FLUSH *Sterile* 10 ML SYRINGE ONE (11:46)
[2017-04-03] MEDS ORDERED: VANCOMYCIN 1,000 MG INJECTION IAR ONE (12:02)
[2017-04-03] MEDS ORDERED: BUPIVACAINE 0.25% (2.5mg/ml) PF 30ml INJECTION INFIL ONE (12:03)
[2017-04-03] MEDS ORDERED: FentaNYL 100 MCG/2 ML INJECTION IVP PRN (13:34)
[2017-04-03] MEDS ORDERED: ONDANSETRON 4 MG/2 ML INJECTION IVP PRN (13:34)
[2017-04-03] MEDS ORDERED: METOCLOPRAMIDE 10mg/2ml INJECTION IVP PRN (13:34)
[2017-04-03] MEDS ORDERED: FentaNYL 100 MCG/2 ML INJECTION ONE (13:39)
--- NOTE | 2017-04-03 14:29 | XRay Report ---
Indication: Post op. single AP view only. PROCEDURE: XR shoulder RT 1V: Encounter: Initial Comparison: April 02, 2017 Findings: Postoperative changes of right shoulder replacement are seen. No retained radiopaque surgical sutures or sponges. Fibrotic changes noted in the right lung. Impression: Findings as above. .
[2017-04-03] MEDS ORDERED: NOZIN NASAL SWAB NAS ONE (14:53)
[2017-04-03] MEDS: NOZIN NASAL SWAB NAS SCH ×2 (14:54→22:29)
[2017-04-03] MEDS: LOSARTAN 50 MG TABLET PO SCH (15:14)
[2017-04-03] MEDS: TORSEMIDE 20 MG TABLET PO SCH (15:14)
--- NOTE | 2017-04-03 15:43 | Progress Note ---
- Date 04/03/17 Subjective: Pt was seen after sx. She was drowsy but responded appropriately. She had left eye ptosis which her son denies ever really noticing before. No other focal neuro deficits. She received fentanyl prior to going to her room and rn had to increase flow rate for oxygen but pt denies feeling soa. She c/o shooting pain in her shoulder and pain in her hand, wrist, elbow, shoulder, and shoulder blade. She also c/o nausea. Objective Vital signs: Temperature 97.0 F 04/03/17 15:14 Pulse Rate 78 04/03/17 15:20 Respiratory Rate 24 04/03/17 15:20 Blood Pressure 160/71 H 04/03/17 15:20 Pulse Oximetry 96 04/03/17 15:20 Height/Weight/BMI: Height 1.5 m Weight 112.2 kg Body Mass Index 49.7 - Constitutional Present: no acute distress, well nourished, well developed, morbidly obese - Routine HEENT Exam Head: Present: normocephalic ENT: Present: mucous membranes dry Comments: left eye ptosis - Routine Respiratory Exam Present: CTA bilaterally - Routine Cardiovascular Exam Present: S1, S2, irregularly irregular - Routine Abdominal Exam Present: soft, normoactive bowel sounds, non tender - Routine Extremities Exam Present: pulses intact Comments: dressing to right anterior shoulder c/d/i. sling in place. - Routine Skin Exam Present: intact, dry, warm - Routine Neurological Exam Present: CN II-XII intact (grossly intact with exception of left eye ptosis), vision grossly intact, hearing grossly intact, normal speech. Absent: alert ( drowsy but appropriate) - Routine Psychiatric Exam Present: cooperative Results - Labs CBC & Chem 7: 04/03/17 04:14 04/03/17 04:14 Assessment and Plan (1) Hill-Sachs fracture of right humerus Current visit: No Status: Acute Assessment and Plan: Impression S/P Right shoulder dislocation with Hill-Sachs Deformity Hypoxia if and RLL 04/03/17 A-Fibrillation HTN DM type 2 GERD Hyperlipidemia Morbid obesity with BMI 49.7 Hx GI Bleed Plan s/p hemiarthroplasty monitor sats; use pain meds judiciously as she's already required an increase in oxygen flow rate zofran prn nausea; monitor sugars as we may need to adjust insulin doses further postop depending upon oral intake consult pt/ot could likely restart cozaar tomorrow if bp and renal function stable DVT Prophylaxis: SCD's Resuscitation Status: Full Code - Physician Narrative Physician: Sydney Webber MD Narrative: Date: 04/03/17 Time: 1715 I have independently evaluated and examined this patient. I reviewed the chart, the patient's history, and the PIN DRAFTING MACHINE OPERATOR/PA's documented findings as above. We discussed and formulated the assessment and plan as above with additions as below: Mrs. Miles was more alert when I saw her and reports she just wants to sleep. She continues to have significant pain in her right shoulder but denied nausea or dyspnea. Wiggles right fingers, sensation intact right hand. Anterior respirations clear although inspiratory effort is poor. Blood pressure remains modestly elevated-nursing has given this morning's dose of losartan; suspect pain is big corrugated fastener driver of current blood pressure. IV acetaminophen being administered; required frequent doses of IV fentanyl during prior hospitalization which in turn contributed to hypoxia. Postop x-ray reviewed by myself-hemiarthroplasty with appropriate placement. All records reviewed. Hospital Course Summary Disclaimer: The visit summary below is not to be considered part of the above Progress Note. Hospital Course: Impression S/P Right shoulder dislocation with Hill-Sachs Deformity A-Fibulation HTN DM type 2 GERD Hyperlipidemia Morbid obesity Hx GI Bleed Plan Admission under the care of Dr. Solomon for scheduled right hemiarthroplasty of the right shoulder tomorrow 04/03/17. Hospital services are consulted for medical management of existing comorbidities. Monitor Accu-Cheks. Patient did have hypoglycemia at 51. Recommended use utilizing dextrose as needed per hypoglycemic protocol. Will be nothing by mouth after midnight. Her most saline at 75 ML per hour for gentle hydration Preop EKG revels rate controlled A-fib. She does have a known hx. Does not appear to be chronically anticoagulated other than ASA. Will need to review home meds post-op Recheck CBC and BMP periodically Postoperatively. Hospital services will continue to follow patient and medically manage existing comorbidities during her stay at [facility]. It does appear that patient is a full code At time of discharge medical care will return to primary care provider, Dr. Romeo 04/03 s/p hemiarthroplasty monitor sats; use pain meds judiciously as she's already required an increase in oxygen flow rate zofran prn nausea; monitor sugars as we may need to adjust insulin doses further postop depending upon oral intake consult pt/ot could likely restart cozaar tomorrow if bp and renal function stable
[2017-04-03] MEDS: CLINDAMYCIN PB 900 MG/50 ML BAG IV SCH ×2 (16:18→22:28)
[2017-04-03] MEDS ORDERED: ACETAMINOPHEN IV 1,000 MG/100 ML VIAL IV ONE (16:30)
--- NOTE | 2017-04-03 16:47 | Operative Note ---
DATE OF SURGERY 04/03/2017 PREOPERATIVE DIAGNOSIS Right shoulder anterior dislocation, recurrent, with Hill-Sachs fracture. POSTOPERATIVE DIAGNOSIS Right shoulder anterior dislocation, recurrent, with Hill-Sachs fracture. PROCEDURE Right shoulder hemiarthroplasty. SURGEON Izabella Solomon MD SOLAR SITE ASSESSMENT SPECIALIST Deandre Cope PA-C COMPLICATIONS None. ANESTHESIA General. Please see anesthetic records. DESCRIPTION OF PROCEDURE Mrs. Miles and her right shoulder were identified in the preoperative holding area. She was brought back to the operating suite and placed supine on the operating table. She was placed under general anesthesia and intubated. She was then placed in a beach-chair position. The right upper extremity was prepped and draped in my normal sterile fashion. Time-out was performed. The surgery was made more difficult by the patient's body habitus. A deltopectoral approach was utilized. Sharp incision was made starting with the coracoid. Sharp dissection was carried down through the subcutaneous tissue down to the muscle fascia. The deltopectoral interval was then identified. The cephalic vein was identified and tied off. Retractors were placed. The clavipectoral fascia was then incised. Her head was still in an anterior position. It was then able to be reduced. I detached her subscapularis tendon just medial to the bicipital groove. Biceps tenotomy was performed. I did palpate her fracture which was very large at the posterior head and did wrap over superiorly. There was a large tear of the supraspinatus and infraspinatus tendons with almost complete detachment of the footprint. A capsulotomy was performed inferiorly from inside out, being very careful to protect the nerve. This allowed for good exposure. We then circumferentially reamed to a size 11 and placed a cutting guide. Her humeral head had a significant amount of retroversion approximated at about 50 degrees. We set the guide at 40 degrees and resected our humeral head. This was measured on the back table. We then broached to a size 11 and left the broach in place and trialed with a 40 head. This was too small so we then trialed with a 40 x 16 mm head. This felt better. At this point it was noted that she did have a small fracture of the anterior glenoid. No significant piece was large enough to be repaired. I was able to place some suture in the anterior labrum/capsule for later repair. After thorough irrigation and drying of the canal, a final 11 stem was placed. I again trialed with the 11 x 16 head and liked this so a final 11 x 16 head was placed and the shoulder reduced. She did ride high with the lack of rotator cuff. Her CA ligament was intact and did not show any signs of compromise. Attempt was made to repair her rotator cuff but the tissue was very poor quality. I was able to get a few good whip stitches in the supraspinatus and this was tied down to remnant cuff still attached to the bone. In a similar fashion I repaired the subscapularis but I repaired this through bone tunnels. That was made with a needle. The capsular suture was also incorporated with the subscapularis repair. With this I could rotate her to 90 degrees and she was stable and the repair held tight. A total of two Ethibond sutures were placed in the subscapularis and two were also placed in the supraspinatus. The wound was thoroughly irrigated. 1 g vancomycin powder was placed into the wound. The subcutaneous tissue was closed with #1-Vicryl in the fatty layer followed by 2- 0 Vicryl in the subcutaneous layer followed by a running 4-0 Monocryl and a sterile dressing. The drapes were removed. She was allowed to awaken from general anesthesia, extubated and taken to the recovery room under the care of Anesthesia. She tolerated the procedure well. There were no complications. JEAN
[2017-04-03] MEDS: SIMVASTATIN 10 MG TABLET PO SCH ×2 (21:00→21:29)
[2017-04-03] MEDS: ENOXAPARIN 40 MG/0.4 ML INJECTION SQ SCH (21:30)
[2017-04-03] MEDS: Oxycodone *IR* 5 MG TABLET PO PRN (21:30)
[2017-04-03] MEDS: INSULIN GLARGINE 100unit/ml INJECTION SQ SCH (22:33)
[2017-04-03] MEDS ORDERED: FALL RISK - PHARMACY CONSULT XX ONE (23:42)
[2017-04-04] MEDS: NS 1,000 ML IV SCH ×2 (04:00→16:56)
[2017-04-04] MEDS: CLINDAMYCIN PB 900 MG/50 ML BAG IV SCH (04:27)
[2017-04-04] MEDS: OMEPRAZOLE 20 MG CAPSULE PO SCH (06:43)
[2017-04-04] MEDS: NOZIN NASAL SWAB NAS SCH ×3 (06:43→21:59)
[2017-04-04] MEDS: INSULIN ASPART 100unit/ml INJECTION SQ PRN ×3 (07:40→15:48)
[2017-04-04] MEDS: Oxycodone *IR* 5 MG TABLET PO PRN ×2 (07:56→22:36)
[2017-04-04] MEDS: ACETAMINOPHEN 325 MG TABLET PO PRN ×2 (07:57→18:00)
[2017-04-04] MEDS: INSULIN ASPART 100unit/ml INJECTION SQ SCH ×3 (08:07→18:56)
[2017-04-04] MEDS: LOSARTAN 50 MG TABLET PO SCH (08:07)
[2017-04-04] MEDS: TORSEMIDE 20 MG TABLET PO SCH (08:07)
[2017-04-04] MEDS: HYDROCORTISONE 2.5% CREAM 30gm RECTALLY SCH ×2 (08:08→21:14)
--- NOTE | 2017-04-04 08:23 | Orthopedic Progress Note ---
Date: Date: 04/04/17 Time: 819 Subjective/Severity of Illness: Doing okay but is confused. She is not compliant with keeping the arm in the sling. She moves around in bed and slides down requiring frequent change of position. Denies having specific complaints but has been confused. Orthopedic Objective Vital signs: Temperature 98.5 F 04/04/17 07:26 Pulse Rate 72 04/04/17 07:26 Respiratory Rate 20 04/04/17 07:26 Blood Pressure 132/67 04/04/17 07:26 Pulse Oximetry 95 04/04/17 07:26 Height and Weight: Height 4 ft 11 in Weight 254 lb 13.67 oz Body Mass Index 49.7 - Constitutional General Appearance: Present: well developed, well nourished - Respiratory Exam Present: non-labored - Cardiovascular Exam Capillary Refill: < 2-3 Seconds - Extremities Exam Present: pulses intact - Integumentary Exam Present: pink, warm, dry - Neurological Exam Present: intact to light touch Pt would not move her elbow this AM. This may be due to position / pain / confusion. Will monitor. She does move her fingers and wrist and reports good sensation throughout all dermatomes. - Psychiatric Exam Present: alert. Absent: oriented - Labs Result Diagrams: 04/04/17 04:42 04/04/17 04:42 Abnormal lab results 04/04/17 04/04/17 Range/Units 04:42 04:42 RBC 3.86 L (4.00-5.20) M/MM3 Hgb 11.6 L (12-16) GM/DL RDW Std Deviation 51.5 H (36.9-50.2) FL Neut % (Auto) 81.2 H (33-66) % Lymph % (Auto) 8.2 L (23-45) % [place] % (Auto) 9.1 H (0-9.0) % Neut # (Auto) 8.8 H (1.8-7.7) T/MM3 Lymph # (Auto) 0.9 L (1-4.8) T/MM3 [place] # (Auto) 1.0 H (0-0.8) T/MM3 Sodium 145 H (134-144) MEQ/L Chloride 110 H (98-107) MEQ/L BUN 21.0 H (7-17) MG/DL Glucose 205 H (65-110) MG/DL Calculated Osmolality 288 H (261-280) MOSM/KG Specimen Hemolysis 36 H (0-25) H & H 04/02/17 04/03/17 04/04/17 Range/Units 12:18 04:14 04:42 Hgb 13.0 12.4 11.6 L (12-16) GM/DL Hct 40.4 38.7 36.2 (36-46) % Orthopedic Assessment and Plan (1) Anterior shoulder dislocation Status: Acute Qualifiers: Encounter type: subsequent encounter Laterality: right Qualified Code(s) : S43.014D - Anterior dislocation of right humerus, subsequent encounter Assessment and Plan: S/P right humeral head replacement 04/03/17. Mobilize with PT. No ROM of the shoulder but may move the wrist and elbow. Medical mgmt per hospitalist. SCDs in place and Lovenox ordered. (2) Hill-Sachs fracture of right humerus Status: Acute Qualifiers: Encounter type: initial encounter Fracture type: closed Qualified Code(s) : S42.291A - Other displaced fracture of upper end of right humerus, initial encounter for closed fracture Hospital Course Summary Disclaimer: The visit summary below is not to be considered part of the above Progress Note. Hospital Course: Impression S/P Right shoulder dislocation with Hill-Sachs Deformity A-Fibulation HTN DM type 2 GERD Hyperlipidemia Morbid obesity Hx GI Bleed Plan Admission under the care of Dr. Solomon for scheduled right hemiarthroplasty of the right shoulder tomorrow 04/03/17. Hospital services are consulted for medical management of existing comorbidities. Monitor Accu-Cheks. Patient did have hypoglycemia at 51. Recommended use utilizing dextrose as needed per hypoglycemic protocol. Will be nothing by mouth after midnight. Her most saline at 75 ML per hour for gentle hydration Preop EKG revels rate controlled A-fib. She does have a known hx. Does not appear to be chronically anticoagulated other than ASA. Will need to review home meds post-op Recheck CBC and BMP periodically Postoperatively. Hospital services will continue to follow patient and medically manage existing comorbidities during her stay at [facility]. It does appear that patient is a full code At time of discharge medical care will return to primary care provider, Dr. Romeo 04/03 s/p hemiarthroplasty monitor sats; use pain meds judiciously as she's already required an increase in oxygen flow rate zofran prn nausea; monitor sugars as we may need to adjust insulin doses further postop depending upon oral intake consult pt/ot could likely restart cozaar tomorrow if bp and renal function stable
[2017-04-04] MEDS: LORazepam 1 MG TABLET PO PRN ×2 (10:51→22:32)
[2017-04-04] MEDS ORDERED: ACETAMINOPHEN IV 1,000 MG/100 ML VIAL IV ONE (12:23)
--- NOTE | 2017-04-04 14:20 | XRay Report ---
Indication: AP, Y lateral and Grashey view PROCEDURE: XR shoulder RT 2-3 views: Encounter: Initial Comparison: April 03, 2017 Findings: Right shoulder prosthesis appears somewhat anteriorly positioned suggesting subluxation. No evidence of hardware failure. No acute fractures seen. Impression: Apparent anterior subluxation of the right humeral prosthesis. .
--- NOTE | 2017-04-04 16:46 | Progress Note ---
- Date 04/04/17 Subjective: Mrs. Miles was agitated and confused when seen this morning. She did not directly answer many questions and repetitively demanded to go home. She ate breakfast well per nursing and has had no nausea or vomiting. Patient complained of pain anytime I got near her right arm but denied dyspnea or nausea. Nursing reported that the patient slept little overnight and has been oriented only to name. Objective Vital signs: Temperature 99.2 F 04/04/17 16:00 Pulse Rate 72 04/04/17 16:00 Respiratory Rate 20 04/04/17 12:00 Blood Pressure 147/67 H 04/04/17 16:00 Pulse Oximetry 93 -1 L 04/04/17 16:00 Agitative, talkative, demanding Conjunctiva clear Respirations nonlabored, decreased airflow, breath sounds clear anteriorly Regular rhythm, S1-S2 Abdomen soft, obese, nontender, diminished bowel sounds Lower extremities without edema Sensation intact bilateral hands; right upper extremity in a sling Moving lower extremities symmetrically while seated in chair Height/Weight/BMI: Height 1.5 m Weight 115.6 kg Body Mass Index 49.7 Results - Labs CBC & Chem 7: 04/04/17 04:42 04/04/17 04:42 Labs: Accu-Cheks today 220-166 - Imaging and Cardiology right shoulder Status: image reviewed by me (possible anterior subluxation of right humeral prosthesis) Assessment and Plan (1) Hill-Sachs fracture of right humerus Current visit: No Status: Acute Assessment and Plan: Impression S/P Right shoulder dislocation with Hill-Sachs Deformity Postop delirium Hypoxia A-Fibrillation HTN DM type 2 GERD Hyperlipidemia Morbid obesity with BMI 49.7 Hx GI Bleed Plan s/p hemiarthroplasty 04/04, continue low-flow oxygen as needed. Difficult to assess pain control due to patient delirium-IV acetaminophen administered earlier this afternoon as patient was refusing all oral meds. IV lorazepam given to control agitation when she began trying to take her arm out of the sling; has rested since IV meds given. Lorazepam available IV or orally if additional doses needed. Blood sugars stable/improving. Continue to monitor. Discussed with orthopedics earlier today; discussed with nursing on several occasions. Blood pressure stable-losartan resumed earlier. Mild drop in hemoglobin-reassess in a.m. - Physician Narrative Narrative: Date: 04/04/17 Time: 1643 Hospital Course Summary Disclaimer: The visit summary below is not to be considered part of the above Progress Note. Hospital Course: Impression S/P Right shoulder dislocation with Hill-Sachs Deformity A-Fibulation HTN DM type 2 GERD Hyperlipidemia Morbid obesity Hx GI Bleed Plan Admission under the care of Dr. Solomon for scheduled right hemiarthroplasty of the right shoulder tomorrow 04/03/17. Hospital services are consulted for medical management of existing comorbidities. Monitor Accu-Cheks. Patient did have hypoglycemia at 51. Recommended use utilizing dextrose as needed per hypoglycemic protocol. Will be nothing by mouth after midnight. Her most saline at 75 ML per hour for gentle hydration Preop EKG revels rate controlled A-fib. She does have a known hx. Does not appear to be chronically anticoagulated other than ASA. Will need to review home meds post-op Recheck CBC and BMP periodically Postoperatively. Hospital services will continue to follow patient and medically manage existing comorbidities during her stay at [facility]. It does appear that patient is a full code At time of discharge medical care will return to primary care provider, Dr. Romeo 04/03 s/p hemiarthroplasty monitor sats; use pain meds judiciously as she's already required an increase in oxygen flow rate zofran prn nausea; monitor sugars as we may need to adjust insulin doses further postop depending upon oral intake consult pt/ot could likely restart cozaar tomorrow if bp and renal function stable 04/04 s/p hemiarthroplasty 04/04, continue low-flow oxygen as needed. Difficult to assess pain control due to patient delirium-IV acetaminophen administered earlier this afternoon as patient was refusing all oral meds. IV lorazepam given to control agitation when she began trying to take her arm out of the sling; has rested since IV meds given. Lorazepam available IV or orally if additional doses needed. Blood sugars stable/improving. Continue to monitor. Blood pressure stable-losartan resumed earlier. Mild drop in hemoglobin-reassess in a.m.
[2017-04-04] MEDS: ENOXAPARIN 40 MG/0.4 ML INJECTION SQ SCH (21:14)
[2017-04-04] MEDS: SIMVASTATIN 10 MG TABLET PO SCH ×2 (21:14)
[2017-04-04] MEDS: INSULIN GLARGINE 100unit/ml INJECTION SQ SCH (21:14)
[2017-04-05] MEDS: OMEPRAZOLE 20 MG CAPSULE PO SCH (05:39)
[2017-04-05] MEDS: NOZIN NASAL SWAB NAS SCH ×2 (05:39→06:26)
[2017-04-05] MEDS: NS 1,000 ML IV SCH (05:40)
[2017-04-05 07:38] VITALS: RESP 20
--- NOTE | 2017-04-05 07:55 | Orthopedic Progress Note ---
Date: Date: 04/05/17 Time: 751 Subjective/Severity of Illness: Doing okay, but wants to get up. She has been agitated according to nursing. Her sling is not applied appropriately. She is not compliant with keeping the arm in the sling. She moves around in bed and slides down requiring frequent change of position. Denies having specific complaints but has been confused. She does answer questions appropriately. She denies chest pain, shortness of breath or loss of sensation in the right hand. X-rays of the right shoulder were reviewed by Dr. Solomon yesterday and he felt they were okay. Orthopedic Objective PO Vital signs: Temperature 98.6 F 04/05/17 07:37 Pulse Rate 73 04/05/17 07:37 Respiratory Rate 20 04/05/17 07:37 Blood Pressure 161/69 H 04/05/17 07:37 Pulse Oximetry 94 04/05/17 07:37 Height and Weight: Height 4 ft 11 in Weight 250 lb 14.177 oz Body Mass Index 49.7 - Constitutional General Appearance: Present: well developed, well nourished - Respiratory Exam Present: non-labored - Cardiovascular Exam Present: pedal pulses intact - Abdominal Exam Absent: tenderness - Extremities Exam Extremities: Present: pulses intact - Surgical Site Incision: Mepilex dressing intact, no drainage - Integumentary Exam Present: pink, warm, dry - Neurological Exam Present: intact to light touch, no deficits - Psychiatric Exam Present: alert. Absent: oriented - Labs Result Diagrams: 04/04/17 04:42 04/04/17 04:42 H & H 04/02/17 04/03/17 04/04/17 Range/Units 12:18 04:14 04:42 Hgb 13.0 12.4 11.6 L (12-16) GM/DL Hct 40.4 38.7 36.2 (36-46) % Orthopedic Assessment and Plan (1) Anterior shoulder dislocation Status: Acute Qualifiers: Encounter type: subsequent encounter Laterality: right Qualified Code(s) : S43.014D - Anterior dislocation of right humerus, subsequent encounter Assessment and Plan: S/P right humeral head replacement 04/03/17. Mobilize with PT. No ROM of the shoulder but may move the wrist and elbow. Medical mgmt per hospitalist. SCDs in place and Lovenox ordered. Sling was re applied. Ready orthopaedically for skilled placement once medical service feels appropriate. (2) Hill-Sachs fracture of right humerus Status: Acute Qualifiers: Encounter type: initial encounter Fracture type: closed Qualified Code(s) : S42.291A - Other displaced fracture of upper end of right humerus, initial encounter for closed fracture Hospital Course Summary Disclaimer: The visit summary below is not to be considered part of the above Progress Note. Hospital Course: Impression S/P Right shoulder dislocation with Hill-Sachs Deformity A-Fibulation HTN DM type 2 GERD Hyperlipidemia Morbid obesity Hx GI Bleed Plan Admission under the care of Dr. Solomon for scheduled right hemiarthroplasty of the right shoulder tomorrow 04/03/17. Hospital services are consulted for medical management of existing comorbidities. Monitor Accu-Cheks. Patient did have hypoglycemia at 51. Recommended use utilizing dextrose as needed per hypoglycemic protocol. Will be nothing by mouth after midnight. Her most saline at 75 ML per hour for gentle hydration Preop EKG revels rate controlled A-fib. She does have a known hx. Does not appear to be chronically anticoagulated other than ASA. Will need to review home meds post-op Recheck CBC and BMP periodically Postoperatively. Hospital services will continue to follow patient and medically manage existing comorbidities during her stay at [facility]. It does appear that patient is a full code At time of discharge medical care will return to primary care provider, Dr. Romeo 04/03 s/p hemiarthroplasty monitor sats; use pain meds judiciously as she's already required an increase in oxygen flow rate zofran prn nausea; monitor sugars as we may need to adjust insulin doses further postop depending upon oral intake consult pt/ot could likely restart cozaar tomorrow if bp and renal function stable 04/04 s/p hemiarthroplasty 04/04, continue low-flow oxygen as needed. Difficult to assess pain control due to patient delirium-IV acetaminophen administered earlier this afternoon as patient was refusing all oral meds. IV lorazepam given to control agitation when she began trying to take her arm out of the sling; has rested since IV meds given. Lorazepam available IV or orally if additional doses needed. Blood sugars stable/improving. Continue to monitor. Blood pressure stable-losartan resumed earlier. Mild drop in hemoglobin-reassess in a.m.
[2017-04-05] MEDS: TORSEMIDE 20 MG TABLET PO SCH (08:46)
[2017-04-05] MEDS: LOSARTAN 50 MG TABLET PO SCH (08:46)
[2017-04-05] MEDS: HYDROCORTISONE 2.5% CREAM 30gm RECTALLY SCH (08:49)
[2017-04-05] MEDS: INSULIN ASPART 100unit/ml INJECTION SQ SCH ×2 (11:18→14:54)
[2017-04-05] MEDS: INSULIN ASPART 100unit/ml INJECTION SQ PRN ×2 (11:22→14:54)
[2017-04-05 12:24] VITALS: BP 165/92; PULSE 75; TEMP 97; O2SAT 96
[2017-04-05] MEDS: ACETAMINOPHEN 325 MG TABLET PO PRN (13:13)
--- NOTE | 2017-04-05 13:39 | Progress Note ---
- Date 04/05/17 Subjective: Mrs. Miles was sleeping when seen at about 1 PM p.m. She awoke to voice and mumbled that she just wanted to be left alone to sleep. She did follow some simple commands and indicated that she's not short of breath, her shoulder hurts and she doesn't want anyone to touch it. She doesn't want to eat lunch but she denied nausea. Nursing reports that she's been sleepy all day and didn' t eat breakfast. She was agitated at times overnight, removed her IV and oxygen intermittently and had her sling completely off at one point overnight. Patient told nursing she was given a walk home at 2 AM this morning Objective Vital signs: Temperature 97.0 F 04/05/17 12:00 Pulse Rate 75 04/05/17 12:00 Respiratory Rate 20 04/05/17 12:00 Blood Pressure 165/92 H 04/05/17 12:00 Pulse Oximetry 96 -2 L 04/05/17 12:00 Drowsy, mumbled speech Keeps eyes closed during evaluation Respirations are nonlabored and air flow is diminished but breath sounds are clear anteriorly; could not reposition the patient to permit evaluation of posterior lung burgos Patient actively resists repositioning Regular rhythm, S1-S2 Abdomen is soft, obese, nontender, bowel sounds are diminished Patient wiggles the fingers of her right hand and plan nurse weakly with the right; acknowledges touch when the fingers are tickled on both the right and left hands ; wiggles toes bilaterally Oriented to Sonia Michael, able to tell me Dr. Solomon operated on her, does not respond when asked what year it is Height/Weight/BMI: Height 1.5 m Weight 113.8 kg Body Mass Index 49.7 Results - Labs CBC & Chem 7: 04/04/17 04:42 04/04/17 04:42 Labs: Accu-Cheks [phone] today Assessment and Plan (1) Hill-Sachs fracture of right humerus Current visit: No Status: Acute Assessment and Plan: Impression S/P Right shoulder dislocation with Hill-Sachs Deformity Postop delirium Hypoxia A-Fibrillation HTN DM type 2 GERD Hyperlipidemia Morbid obesity with BMI 49.7 Hx GI Bleed Plan s/p hemiarthroplasty 04/04, continue low-flow oxygen as needed. Delirium improving, drowsy today but has slept poorly for several days. Do not believe prolonging hospitalization will benefit recovery at this point. May require lorazepam or even Haldol if delirium persists on return [facility]. Blood sugars well controlled-morning NovoLog held as patient skipped breakfast. Unclear if she'll eat lunch due to persistent drowsiness and her expressed wish that she be left alone to sleep. Blood pressure moderately elevated intermittently, adequately controlled but others. Will not modify blood pressure medicines at present. From my perspective can return to [facility]. Discussed need to keep her arm in a splint consistently and cooperate with therapy, need to reposition, and need to use incentive spirometer to expand lungs. Discussed with Dr. Dykes and case management. Resuscitation Status: Full Code - Physician Narrative Narrative: Date: 04/05/17 Time: 1334 Hospital Course Summary Disclaimer: The visit summary below is not to be considered part of the above Progress Note. Hospital Course: Impression S/P Right shoulder dislocation with Hill-Sachs Deformity A-Fibulation HTN DM type 2 GERD Hyperlipidemia Morbid obesity Hx GI Bleed Plan Admission under the care of Dr. Solomon for scheduled right hemiarthroplasty of the right shoulder tomorrow 04/03/17. Hospital services are consulted for medical management of existing comorbidities. Monitor Accu-Cheks. Patient did have hypoglycemia at 51. Recommended use utilizing dextrose as needed per hypoglycemic protocol. Will be nothing by mouth after midnight. Her most saline at 75 ML per hour for gentle hydration Preop EKG revels rate controlled A-fib. She does have a known hx. Does not appear to be chronically anticoagulated other than ASA. Will need to review home meds post-op Recheck CBC and BMP periodically Postoperatively. Hospital services will continue to follow patient and medically manage existing comorbidities during her stay at [facility]. It does appear that patient is a full code At time of discharge medical care will return to primary care provider, Dr. Romeo 04/03 s/p hemiarthroplasty monitor sats; use pain meds judiciously as she's already required an increase in oxygen flow rate zofran prn nausea; monitor sugars as we may need to adjust insulin doses further postop depending upon oral intake consult pt/ot could likely restart cozaar tomorrow if bp and renal function stable 04/04 s/p hemiarthroplasty 04/04, continue low-flow oxygen as needed. Difficult to assess pain control due to patient delirium-IV acetaminophen administered earlier this afternoon as patient was refusing all oral meds. IV lorazepam given to control agitation when she began trying to take her arm out of the sling; has rested since IV meds given. Lorazepam available IV or orally if additional doses needed. Blood sugars stable/improving. Continue to monitor. Blood pressure stable-losartan resumed earlier. Mild drop in hemoglobin-reassess in a.m.
--- NOTE | 2017-04-05 13:42 | Extended Care Facility Orders ---
Admission Orders Admit to:: Long Term Allergies/Adverse Reactions: Allergies latex Allergy (Intermediate, Verified 04/02/17 10:42) RASH VAGINAL IRRITATION WITH CONDOMS morphine Allergy (Mild, Verified 04/02/17 10:42) headache, NAUSEA Penicillins Allergy (Mild, Verified 04/02/17 10:42) rash adhesive tape Allergy (Verified 04/02/17 10:42) Admitting Diagnosis: R shoulder fx Admitting Physician: Florin Solomon MD Attending Physician: Florin Solomon MD Code Status: Full Code Anticiapted Length of Stay: 30 days or less Rehab Potential: fair Rehab Prognosis: fair Diet: 04/03/17 Dinner Consistent Carbohydrate Diet [DIET] Calorie Level: 1800 May use Facility Protocol or Standing Orders: Yes May have flu vaccine: Yes Evaluations/Treatment: PT, OT Long Term Certification: I certify that SNF services are required to be given on an Inpatient basis because of the patients need for alf care on a continuing basis for the condition(s) for which he/she received inpatient hospital services prior to his/her transfer to the SNF. SNF inpatient care is necessary for the following reasons Indication for Long Term: Other - Additional Information In Event of Arrest: Start CPR,call 911,send patient to the ER
--- NOTE | 2017-04-05 13:52 | Discharge Summary ---
Orthopedic Discharge Info Date of admission: 04/02/17 11:40 Primary care physician: Dominik Romeo MD Attending Physician: Florin Solomon MD Consults: 04/02/17 11:53 Physician Consult [CONS] Routine Consulting Provider: Gerry Allen Reason For Exam: medical management Ordering Provider has Notified Fire Department Marine Engineer: No Comment: surgery planned for 04/03/17 04/03/17 13:45 Physician [Physician Consult] [CONS] Routine Consulting Provider: John Rodriguez Reason For Exam: CONT CARE Ordering Provider has Notified Fire Department Marine Engineer: Yes - Discharge Diagnosis (1) Anterior shoulder dislocation Qualifiers: Encounter type: subsequent encounter Laterality: right Qualified Code(s) : S43.014D - Anterior dislocation of right humerus, subsequent encounter Status: Acute (2) Hill-Sachs fracture of right humerus Qualifiers: Encounter type: initial encounter Fracture type: closed Qualified Code(s) : S42.291A - Other displaced fracture of upper end of right humerus, initial encounter for closed fracture Status: Acute - Procedures Procedures: Procedures Open and other right hemicolectomy (08/24/09) Other lysis of peritoneal adhesions (08/24/09) Closed reduction right shoulder dislocation, (03/22/17) Right humeral head replacement. 04/03/17. - Laboratory Result Diagrams: 04/04/17 04:42 04/04/17 04:42 Laboratory: H & H 04/02/17 04/03/17 04/04/17 Range/Units 12:18 04:14 04:42 Hgb 13.0 12.4 11.6 L (12-16) GM/DL Hct 40.4 38.7 36.2 (36-46) % Orthopedic Discharge HPI - HPI Comments Mrs. Miles is an 81-year-old female who I recently first met after a shoulder dislocation which required reduction in the operating room under anesthesia. Reduction was attempted in the months room but was unsuccessful likely due to the Hill-Sachs lesion. She was in the hospital for a couple days for medical management [facility] She read my office today for follow-up appointment and x-rays showed that she was again dislocated. She is on room call us or in time when the shoulder my dislocated again but does recall bumping it several times. She has been in a sling since discharge. She only complained of right shoulder pain to me today. Orthopedic Hospital Course Hospital course: 04/02/17 Admission under the care of Dr. Solomon for scheduled right hemiarthroplasty of the right shoulder on 04/03/17. Hospital services are consulted for medical management of existing comorbidities. Monitor Accu-Cheks. Patient did have hypoglycemia at 51. Recommended use utilizing dextrose as needed per hypoglycemic protocol. Will be nothing by mouth after midnight. Her most saline at 75 ML per hour for gentle hydration Preop EKG revels rate controlled A-fib. She does have a known hx. Does not appear to be chronically anticoagulated other than ASA. Will need to review home meds post-op Recheck CBC and BMP periodically Postoperatively. Hospital services will continue to follow patient and medically manage existing comorbidities during her stay at [facility]. It does appear that patient is a full code At time of discharge medical care will return to primary care provider, Dr. Romeo 04/03 s/p hemiarthroplasty of the right shoulder by Dr Solomon. monitor sats; use pain meds judiciously as she's already required an increase in oxygen flow rate zofran prn nausea; monitor sugars as we may need to adjust insulin doses further postop depending upon oral intake consult pt/ot could likely restart cozaar tomorrow if bp and renal function stable 04/04 s/p hemiarthroplasty 04/04, continue low-flow oxygen as needed. Difficult to assess pain control due to patient delirium-IV acetaminophen administered earlier this afternoon as patient was refusing all oral meds. IV lorazepam given to control agitation when she began trying to take her arm out of the sling; has rested since IV meds given. Lorazepam available IV or orally if additional doses needed. Blood sugars stable/improving. Continue to monitor. Blood pressure stable-losartan resumed earlier. Mild drop in hemoglobin-reassess in a.m. 04/05/17 s/p hemiarthroplasty 04/04, continue low-flow oxygen as needed. Delirium improving, drowsy today but has slept poorly for several days. Do not believe prolonging hospitalization will benefit recovery at this point. May require lorazepam or even Haldol if delirium persists on return [facility]. Blood sugars well controlled-morning NovoLog held as patient skipped breakfast. Unclear if she'll eat lunch due to persistent drowsiness and her expressed wish that she be left alone to sleep. Blood pressure moderately elevated intermittently, adequately controlled but others. Will not modify blood pressure medicines at present. Pt can return to [facility] today. F/U with Dr Solomon in 2 weeks. Discussed need to keep her arm in a splint consistently and cooperate with therapy, need to reposition, and need to use incentive spirometer to expand lungs. Discussed with Dr. Dykes and case management. Condition is stable. Disposition to [facility]. F/U in ortho clinic 04/18/17. Care extended to > 2 midnight stays?: Yes Discharge Plan - Med Rec/Dispo Referrals/Follow Up: Deandre Cope PA [Physician Sex Offender Treatment Professional] - 04/18/17 2:00 pm [place] Instructions: [facility] [place] Postop Instructions Additional Instructions: No ROM of the right shoulder. Keep sling on. No wt bearing thru the right shoulder. May move right wrist and elbow but NO USE of the right shoulder. Prescriptions: New Acetaminophen [Tylenol] 325 - 650 mg PO Q5H PRN tab PRN Reason: Discomfort Enoxaparin Sodium [Lovenox] 40 mg SQ Q24H syringe LORazepam [Ativan] 1 mg PO TID PRN #50 tab PRN Reason: Anxiety Milk of Magnesia [Mom] 30 ml PO DAILY PRN udc PRN Reason: Constipation Oxycodone *IR* [Roxicodone *Ir*] 5 - 15 mg PO Q3H PRN #60 tab PRN Reason: Pain PEG 3350 17gm PACKET [Miralax] 17 gm PO DAILY PRN packet PRN Reason: Constipation No Action Aspirin [Tolstoy Aspirin] 81 mg PO DAILY Albuterol Neb (0.083%) [Proventil Neb (0.083%)] 2.5 mg AEROSOL RTQID PRN each PRN Reason: wheezing Vardaman-3 Acid Ethyl Esters [Lovaza] 1 gm PO DAILY cap Hydrocodone/APAP 5/325 [[place] 5/325] 1 - 2 tab PO Q6H PRN #60 tab PRN Reason: Pain Torsemide 10 mg PO DAILY Losartan [Cozaar] 50 mg PO DAILY Simvastatin [Zocor] 10 mg PO HS Hydrocortisone 2.5% Cream [Anusol-Hc 2.5% Cream] 30 applicatio RECTALLY BID Acetaminophen 650 mg PO Q4HR PRN MDD 3000 MG PRN Reason: Pain /Fever omega-3 fatty acids-fish oil 1 cap PO DAILY Novolog (insulin aspart) 100 unit/mL 26 unit SQ TIDWM 89 Days #69.42 ml Lantus (insulin glargine) 100 unit/mL SQ 54 unit SQ HS ml multivitamin tablet 1 tab PO QAM Prilosec (Omeprazole) 20 mg capsule,delayed release 20 mg PO DAILY cap Zocor (simvastatin) 10 mg tablet 10 mg PO QAM - Disposition 03 To SNU Not [facility] ([facility]) - Dismissal Complete Discharge Instructions are:: Complete
--- NOTE | 2017-04-05 14:05 | Extended Care Facility Orders ---
Admission Orders Admit to:: Half-Way Allergies/Adverse Reactions: Allergies latex Allergy (Intermediate, Verified 04/02/17 10:42) RASH VAGINAL IRRITATION WITH CONDOMS morphine Allergy (Mild, Verified 04/02/17 10:42) headache, NAUSEA Penicillins Allergy (Mild, Verified 04/02/17 10:42) rash adhesive tape Allergy (Verified 04/02/17 10:42) Admitting Diagnosis: R shoulder fx Admitting Physician: Florin Solomon MD Attending Physician: Florin Solomon MD Code Status: Full Code Anticiapted Length of Stay: 30 days or less Rehab Potential: fair Rehab Prognosis: fair Diet: 04/03/17 Dinner Consistent Carbohydrate Diet [DIET] Calorie Level: 1800 Wound/Incision Care: Keep dressing in place. Report any drainage or concerns to Dr Solomon. Keep incision dry. May use Facility Protocol or Standing Orders: Yes May have flu vaccine: Yes Evaluations/Treatment: PT (No ROM of the shoulder. Do not externally rotate the shoulder. May work on ROM of the elbow and wrist. ), OT (See PT orders for shoulder restrictions.) Half-Way Certification: I certify that SNF services are required to be given on an Inpatient basis because of the patients need for fci care on a continuing basis for the condition(s) for which he/she received inpatient hospital services prior to his/her transfer to the SNF. SNF inpatient care is necessary for the following reasons Indication for Half-Way: Other - Additional Information In Event of Arrest: Start CPR,call 911,send patient to the ER Resident is Aware of Diagnosis: Yes Referrals: Deandre Cope PA [Physician Assembler [employer]s] - 04/18/17 2:00 pm Additional Orders: Keep the sling in place. NO USE OF THE RIGHT SHOULDER. Do not externally rotate the shoulder. Reposition the sling frequently. May move elbow, wrist and hand but no use of the shoulder. No wt bearing thru the shoulder or right arm. Use incentive spirometer every 4hrs while awake. SCDs if available.
--- NOTE | 2017-04-05 14:21 | Extended Care Facility Orders ---
Admission Orders Admit to:: [facility] Care Allergies/Adverse Reactions: Allergies latex Allergy (Intermediate, Verified 04/02/17 10:42) RASH VAGINAL IRRITATION WITH CONDOMS morphine Allergy (Mild, Verified 04/02/17 10:42) headache, NAUSEA Penicillins Allergy (Mild, Verified 04/02/17 10:42) rash adhesive tape Allergy (Verified 04/02/17 10:42) Admitting Diagnosis: R shoulder fx Admitting Physician: Florin Solomon MD Attending Physician: Florin Solomon MD Code Status: Full Code Anticiapted Length of Stay: 30 days or less Rehab Potential: fair Rehab Prognosis: fair Diet: 04/03/17 Dinner Consistent Carbohydrate Diet [DIET] Calorie Level: 1800 May use Facility Protocol or Standing Orders: Yes May have flu vaccine: Yes Evaluations/Treatment: PT (No ROM of the shoulder. Do not externally rotate the shoulder. May work on ROM of the elbow and wrist. ), OT (See PT orders for shoulder restrictions.) Senior [facility] Certification: I certify that SNF services are required to be given on an Inpatient basis because of the patients need for nursing home care on a continuing basis for the condition(s) for which he/she received inpatient hospital services prior to his/her transfer to the SNF. SNF inpatient care is necessary for the following reasons Indication for Senior Care: Other - Additional Information In Event of Arrest: Start CPR,call 911,send patient to the ER Resident is Aware of Diagnosis: Yes Referrals: Deandre Cope PA [Physician Towel Folder] - 04/18/17 2:00 pm Additional Orders: Keep the sling in place. NO USE OF THE RIGHT SHOULDER. Do not externally rotate the shoulder. Reposition the sling frequently. May move elbow, wrist and hand but no use of the shoulder. No wt bearing thru the shoulder or right arm. Use incentive spirometer every 4hrs while awake. SCDs if available. BGMs , fasting and 2hrs after meals and PRN. Use oxygen via NC prn sats > 90%.
--- NOTE | 2017-04-05 14:38 | Progress Note ---
- Date 04/05/17 Subjective: Patient is seen lying in bed. She is sleeping. She will wake up briefly and talk nonsensically. She is being discharged back to the [facility] today. Her morning insulin was held, as well as her lunch insulin as she is not eating well. Objective Vital signs: Temperature 97.0 F 04/05/17 12:00 Pulse Rate 75 04/05/17 12:00 Respiratory Rate 20 04/05/17 12:00 Blood Pressure 165/92 H 04/05/17 12:00 Pulse Oximetry 96 04/05/17 12:00 Height/Weight/BMI: Height 1.5 m Weight 113.8 kg Body Mass Index 49.7 - Constitutional Present: no acute distress, well nourished, well developed, obese - Routine HEENT Exam Head: Present: normocephalic, atraumatic - Routine Respiratory Exam Present: CTA bilaterally. Absent: wheezes - Routine Cardiovascular Exam Present: RRR, no murmur - Routine Abdominal Exam Present: soft, non distended, non tender - Routine Extremities Exam Present: no edema, normal capillary refill - Routine Skin Exam Present: dry, warm Comments: Dressing intact on right shoulder - Routine Neurological Exam Absent: alert - Routine Lymphatic Exam Lymphatic: Absent: adenopathy - Routine Psychiatric Exam Present: unable to assess Results - Labs CBC & Chem 7: 04/04/17 04:42 04/04/17 04:42 Assessment and Plan (1) Hill-Sachs fracture of right humerus Current visit: No Status: Acute Assessment and Plan: Impression S/P Right shoulder dislocation with Hill-Sachs Deformity Postop delirium Hypoxia A-Fibrillation HTN DM type 2 GERD Hyperlipidemia Morbid obesity with BMI 49.7 Hx GI Bleed Plan s/p hemiarthroplasty 04/04, continue low-flow oxygen as needed. Delirium improving, drowsy today but has slept poorly for several days. Do not believe prolonging hospitalization will benefit recovery at this point. May require lorazepam or even Haldol if delirium persists on return [facility]. Blood sugars well controlled-morning NovoLog held as patient skipped breakfast. Unclear if she'll eat lunch due to persistent drowsiness and her expressed wish that she be left alone to sleep. Blood pressure moderately elevated intermittently, adequately controlled but others. Will not modify blood pressure medicines at present. From my perspective can return to [facility]. Discussed need to keep her arm in a splint consistently and cooperate with therapy, need to reposition, and need to use incentive spirometer to expand lungs. Discussed with Dr. Dykes and case management. - Physician Narrative Narrative: Date: 04/05/17 Time: 1434 Hospital Course Summary Disclaimer: The visit summary below is not to be considered part of the above Progress Note. Hospital Course: Impression S/P Right shoulder dislocation with Hill-Sachs Deformity A-Fibulation HTN DM type 2 GERD Hyperlipidemia Morbid obesity Hx GI Bleed Plan Admission under the care of Dr. Solomon for scheduled right hemiarthroplasty of the right shoulder tomorrow 04/03/17. Hospital services are consulted for medical management of existing comorbidities. Monitor Accu-Cheks. Patient did have hypoglycemia at 51. Recommended use utilizing dextrose as needed per hypoglycemic protocol. Will be nothing by mouth after midnight. Her most saline at 75 ML per hour for gentle hydration Preop EKG revels rate controlled A-fib. She does have a known hx. Does not appear to be chronically anticoagulated other than ASA. Will need to review home meds post-op Recheck CBC and BMP periodically Postoperatively. Hospital services will continue to follow patient and medically manage existing comorbidities during her stay at [facility]. It does appear that patient is a full code At time of discharge medical care will return to primary care provider, Dr. Romeo 04/03 s/p hemiarthroplasty monitor sats; use pain meds judiciously as she's already required an increase in oxygen flow rate zofran prn nausea; monitor sugars as we may need to adjust insulin doses further postop depending upon oral intake consult pt/ot could likely restart cozaar tomorrow if bp and renal function stable 04/04 s/p hemiarthroplasty 04/04, continue low-flow oxygen as needed. Difficult to assess pain control due to patient delirium-IV acetaminophen administered earlier this afternoon as patient was refusing all oral meds. IV lorazepam given to control agitation when she began trying to take her arm out of the sling; has rested since IV meds given. Lorazepam available IV or orally if additional doses needed. Blood sugars stable/improving. Continue to monitor. Blood pressure stable-losartan resumed earlier. Mild drop in hemoglobin-reassess in a.m.
== END 2017-04-05 16:20 | DRG 483 ==
LOC: SRG 11:40
PROVIDERS: ADMIT Orthopaedic Surgery; ATTEND Orthopaedic Surgery